=== PATIENT | female | born 1950 | race Asian ===

== ENCOUNTER 2021-05-17 16:26 | Inpatient (IN) | payer MEDICARE ==
[2021-05-17] MEDS ORDERED: SODIUM CHLORIDE 0.9% 1,000 ML IV STA ×2 (16:44→17:29)
--- NOTE | 2021-05-17 16:47 | ED Physician Documentation ---
PD HPI ALTERED MENTAL STATUS - Stated complaint Stated Complaint: HEADACHE - Chief complaint Chief Complaint: Neuro - History obtained from History obtained from: Patient, Family (daughter) - History of Present Illness Timing - onset: How many days ago (2-3 days of undulating weakness and less alertness.) Timing - duration: Days (2-3 days of weakness and less alert/ slow responses, but then was improved, now worse today.) Timing - details: Gradual onset, Waxing and waning Quality / character: Less responsive, Confused. No: Agitated Associated symptoms: Headache (intermittent), Urinary sx (some incontinence and discomfort). No: Fever, Dyspnea, Cough Contributing factors: Diabetic, New medication (mirabegron 1 month ago (April 23 fill date) - urinary antispasmodic.). No: Recent med change, Recent illness Basline status: Alert and oriented X 3, Ambulatory Similar symptoms before: Has not had sx before Recently seen: Clinic (1 month ago.) Review of Systems Unable to obtain: Confused, Other (info from her daughter, with whom patient has lived for the past few months.) Constitutional: reports: Fatigue (for few days). denies: Fever Nose: denies: Rhinorrhea / runny nose, Congestion Throat: denies: Sore throat Cardiac: denies: Chest pain / pressure Respiratory: denies: Dyspnea, Cough GI: denies: Abdominal Pain, Vomiting, Diarrhea : reports: Frequency, Incontinent Neurologic: reports: Generalized weakness, Confused, Headache. denies: Focal weakness, Numbness, Head injury Psychiatric: denies: Anxiety Endocrine: denies: Polyuria Immunocompromised: denies: Immunocompromised PD PAST MEDICAL HISTORY - Past Medical History Cardiovascular: Hypertension Respiratory: None Neuro: None Endocrine/Autoimmune: Type 2 diabetes : Incontinence, Frequency Psych: None Musculoskeletal: None - Allergies Allergies/Adverse Reactions: Allergies Allergy/AdvReac Type Severity Reaction Status Date / Time Unable to Assess Allergy Verified 05/17/21 16:40 PD ED PE NORMAL - Vitals Vital signs reviewed: Yes (BP elevated initially, lower on repeat) - General General: No: Alert and oriented X 3 (eyes open, somewhat distant glance. SLuggish responses with single word answers. ) - HEENT HEENT: Atraumatic, PERRL, EOMI, Pharynx benign. No: Moist mucous membranes - Neck Neck: Supple, no meningeal sign, No adenopathy - Cardiac Cardiac: No murmur. No: RRR (tachycardic but regular. No murmur. ) - Respiratory Respiratory: No respiratory distress, Clear bilaterally - Abdomen Abdomen: Normal bowel sounds, Soft, Non tender, Non distended - Female Female : Deferred - Rectal Rectal: Deferred - Back Back: No CVA TTP - Derm Derm: Normal color, Warm and dry - Neuro Neuro: No sensory deficit, Other (general but symmetric weakness. Normal reflexes. ). No: Alert and oriented X 3 Eye Opening: Spontaneous Motor: Obeys Commands Verbal: Confused GCS Score: 14 Results - Vitals Vitals: Vital Signs - 24 hr 05/17/21 05/17/21 05/17/21 16:35 16:42 17:13 Temperature 37.9 C Heart Rate 143 H 140 H 126 H Respiratory 18 25 H Rate Blood Pressure 201/89 H 201/89 H 141/93 H O2 Saturation 97 96 05/17/21 17:51 Temperature Heart Rate 126 H Respiratory 24 Rate Blood Pressure 148/69 H O2 Saturation 97 Oxygen O2 Source Room air - Labs Labs: Laboratory Tests 05/17/21 05/17/21 05/17/21 16:39 16:39 16:39 WBC 13.6 H RBC 4.17 L Hgb 12.7 Hct 38.0 MCV 91.1 MCH 30.5 MCHC 33.4 RDW 12.5 Plt Count 139 MPV 9.0 Neut # (Auto) 11.4 H Lymph # (Auto) 1.0 L Cataño # (Auto) 1.0 Eos # (Auto) 0.1 Baso # (Auto) 0.0 Absolute Nucleated RBC 0.00 Nucleated RBC % 0.0 Sodium 125 L Potassium 4.4 Chloride 91 L Carbon Dioxide 21 Anion Gap 13.0 BUN 22 H Creatinine 1.0 Estimated GFR (MDRD) 55 L Glucose 428 H Lactic Acid 2.2 Calcium 8.9 Magnesium 1.7 Total Bilirubin 1.4 H AST 25 ALT 30 Alkaline Phosphatase 78 Total Protein 7.6 Albumin 3.6 Globulin 4.0 Albumin/Globulin Ratio 0.9 L Lipase 182 H TSH Urine Color Urine Clarity Urine pH Ur Specific Tilden Urine Protein Urine Glucose (UA) Urine Ketones Urine Occult Blood Urine Nitrite Urine Bilirubin Urine Urobilinogen Ur Leukocyte Esterase Urine RBC Urine WBC Ur Squamous Epith Cells Urine Bacteria Ur Microscopic Review Urine Culture Comments Ethyl Alcohol < 5.0 Serum Ketones NEGATIVE 05/17/21 05/17/21 16:39 17:00 WBC RBC Hgb Hct MCV MCH MCHC RDW Plt Count MPV Neut # (Auto) Lymph # (Auto) Cataño # (Auto) Eos # (Auto) Baso # (Auto) Absolute Nucleated RBC Nucleated RBC % Sodium Potassium Chloride Carbon Dioxide Anion Gap BUN Creatinine Estimated GFR (MDRD) Glucose Lactic Acid Calcium Magnesium Total Bilirubin AST ALT Alkaline Phosphatase Total Protein Albumin Globulin Albumin/Globulin Ratio Lipase TSH 0.76 Urine Color YELLOW Urine Clarity HAZY Urine pH 5.5 Ur Specific [place] 1.015 Urine Protein 30 H Urine Glucose (UA) 500 H Urine Ketones 15 H Urine Occult Blood SMALL H Urine Nitrite POSITIVE H Urine Bilirubin NEGATIVE Urine Urobilinogen 0.2 (NORMAL) Ur Leukocyte Esterase NEGATIVE Urine RBC 6-10 H Urine WBC 11-25 H Ur Squamous Epith Cells FEW Squamous Urine Bacteria Many H Ur Microscopic Review INDICATED Urine Culture Comments INDICATED Ethyl Alcohol Serum Ketones - Rads (name of study) head CT Radiology: Prelim report reviewed (no acute findings), See rad report chest xray Radiology: Prelim report reviewed (mild vascular congestion. No infiltrates. ), See rad report PD MEDICAL DECISION MAKING - ED course Complexity details: reviewed results, re-evaluated patient (mildly improved with IV fluids, but still distant gaze and slow response. ), considered differential (2-3 days of increased weakness and confusion. ), d/w patient, other (The Agusto to use lists potential side effects of the mirabegron as tachycardia headache an d serious reaction of hallucinations. Consider potential side effects of these.) Departure - Departure Disposition: 66 [facility] DC/Xfer Clinical Impression: Hyponatremia, Tachycardia Altered mental status Qualifiers: Altered mental status type: delirium Qualified Code(s): R41.0 - Disorientation, unspecified UTI (urinary tract infection) Qualifiers: Urinary tract infection type: acute cystitis Hematuria presence: without hematuria Qualified Code(s): N30.00 - Acute cystitis without hematuria Condition: Stable Record reviewed to determine appropriate education?: Yes
[2021-05-17 16:50] LABS: BASOPHILS % (AUTO) 0.2 %; EOSINOPHILS # (AUTO) 0.1 10^3/uL (0.0-0.7); EOSINOPHILS % (AUTO) 0.7 %; HGB - HEMOGLOBIN 12.7 g/dL (12.0-16.0); LYMPHOCYTES % (AUTO) 7.4 %; MEAN CORPUSCULAR HEMOGLOBIN 30.5 pg (27.0-31.0); MEAN CORPUSCULAR HGB CONC 33.4 g/dL (32.0-36.0); MEAN CORPUSCULAR VOLUME 91.1 fL (81.0-99.0); MONOCYTES % (AUTO) 7.3 %; NEUTROPHILS # (AUTO) 11.4 10^3/uL (1.5-6.6); NEUTROPHILS % (AUTO) 83.7 %; PLT - PLATELET COUNT 139 10^3/uL (130-450); RED BLOOD COUNT 4.17 10^6/uL (4.20-5.40); RED CELL DISTRIBUTION WIDTH 12.5 % (12.0-15.0); WHITE BLOOD COUNT 13.6 x10^3/uL (4.8-10.8)
[2021-05-17 16:59] LABS: ALBUMIN 3.6 g/dL (3.2-5.5); ALBUMIN/GLOBULIN RATIO 0.9 (1.0-2.2); ALKALINE PHOSPHATASE 78 IU/L (42-121); ALT ALANINE AMINOTRANSFERASE 30 IU/L (10-60); AST ASPARTATE AMINOTRANSFERASE 25 IU/L (10-42); BILIRUBIN,TOTAL 1.4 mg/dL (0.2-1.0); BUN - BLOOD UREA NITROGEN 22 mg/dL (6-20); CALCIUM 8.9 mg/dL (8.5-10.3); CARBON DIOXIDE - CO2 21 mmol/L (21-32); CHLORIDE 91 mmol/L (101-111); ETOH - ETHANOL < 5.0 mg/dL; GFR - MDRD 55 (>89); GLUCOSE 428 mg/dL (70-100); LIPASE 182 U/L (22-51); MAGNESIUM 1.7 mg/dL (1.7-2.8); POTASSIUM 4.4 mmol/L (3.5-5.0); SODIUM 125 mmol/L (135-145); TOTAL PROTEIN 7.6 g/dL (6.7-8.2)
--- NOTE | 2021-05-17 17:03 | XRAY Report ---
PROCEDURE: Chest 1 View X-Ray INDICATIONS: altered mental status TECHNIQUE: One view of the chest was acquired. COMPARISON: None FINDINGS: Surgical changes and devices: None. Lungs and pleura: Diffuse interstitial thickening bilaterally. No dense consolidations, pleural effus ion, or pneumothorax. Mediastinum: Slight cephalization of central vessels. Normal mediastinal contour and heart size. Bones and chest wall: No suspicious bony lesions. Overlying soft tissues appear unremarkable. IMPRESSION: 1. Mild central vascular and interstitial congestion. This is likely due to volume overload/CHF. 2. Interstitial prominence can be seen in viral situs. Reviewed by: Shasha Shaffer MD on 05/17/2021 5:02 PM PST Approved by: Shasha Shaffer MD on 05/17/2021 5:02 PM PST Station ID: [id number]
--- NOTE | 2021-05-17 17:21 | CT Report ---
PROCEDURE: HEAD WO INDICATIONS: altered mental status TECHNIQUE: Noncontrast 4.5 mm thick angled axial sections acquired from the foramen magnum to the vertex. For r adiation dose reduction, the following was used: automated exposure control, adjustment of mA and/or kV according to patient size. COMPARISON: Correlation is made with the accompanying chest radiograph, 05/17/2021 FINDINGS: Image quality: There is streak artifact seen through the skull base. CSF spaces: Basal cisterns are patent. No extra-axial fluid collections. Ventricles are normal in size and shape. Brain: No midline shift. No intracranial masses or hemorrhage. Mehta-white matter interface is norm al. Skull and face: Calvarium and visualized facial bones are intact, without suspicious lesions. Sinuses: Visualized sinuses and mastoids are clear. IMPRESSION: Unremarkable noncontrast head CT for age. Reviewed by: Hieu Pollard MD on 05/17/2021 4:20 PM [facility] Approved by: Hieu Pollard MD on 05/17/2021 4:20 PM [facility] Station ID: [id number]
[2021-05-17 17:25] LABS: BILIRUBIN,URINE NEGATIVE (NEGATIVE); GLUCOSE, URINE (UA) 500 mg/dL (NEGATIVE); KETONES,URINE (UA) 15 mg/dL (NEGATIVE); LEUKOCYTE ESTERASE, URINE NEGATIVE (NEGATIVE); NITRITE,URINE POSITIVE (NEGATIVE); OCCULT BLOOD,URINE SMALL (NEGATIVE); PH,URINE 5.5 PH (5.0-7.5); PROTEIN,URINE 30 mg/dL (NEGATIVE); UROBILINOGEN,URINE 0.2 (NORMAL) E.U./dL (NORMAL)
[2021-05-17 17:25] LABS: KETONES, SERUM (ACETEST) NEGATIVE (NEGATIVE)
[2021-05-17 17:26] LABS: CLARITY,URINE HAZY (CLEAR)
[2021-05-17] MEDS ORDERED: diltiaZEM INJ 5 MG/ML VIAL IVP STA (17:28)
[2021-05-17] MEDS ORDERED: cefTRIAXone 1 GM VIAL IVP STA (17:29)
[2021-05-17 17:30] LABS: BACTERIA,URINE Many /HPF (None Seen); SQUAMOUS EPITHELIAL CELL,UR FEW Squamous (<= Few)
[2021-05-17] MEDS ORDERED: SODIUM CHLORIDE FLUSH 0.9% 10 ML SYRINGE IVP PRN (18:39)
[2021-05-17] MEDS ORDERED: ONDANSETRON 4 MG/2 ML VIAL IVP PRN (18:39)
[2021-05-17 18:46] LABS: B. PARAPERTUSSIS- RESP PCR PAN NOT DETECTED; B. PERTUSSIS- RESP PCR PANEL NOT DETECTED; C. PNEUMONIAE- RESP PCR PANEL NOT DETECTED; CORONAVIRUS 229E-RESP PCR NOT DETECTED; CORONAVIRUS HKU1-RESP PCR NOT DETECTED; CORONAVIRUS NL63-RESP PCR NOT DETECTED; CORONAVIRUS OC43-RESP PCR NOT DETECTED; HUMAN METAPNEUMOVIRUS NOT DETECTED; INFLUENZA A- RESP PCR PANEL NOT DETECTED; INFLUENZA B - RESP PCR PANEL NOT DETECTED; M. PNEUMONIAE- RESP PCR PANEL NOT DETECTED; PARAINFLUENZA VIRUS 1 NOT DETECTED; PARAINFLUENZA VIRUS 2 NOT DETECTED; PARAINFLUENZA VIRUS 3 NOT DETECTED; PARAINFLUENZA VIRUS 4 NOT DETECTED; RHINOVIRUS/ENTEROVIRUS NOT DETECTED; RSV- RESP PCR PANEL NOT DETECTED; SARS-CoV-2 -RESP PCR PANEL NOT DETECTED
[2021-05-17] MEDS: SODIUM CHLORIDE 0.9% 1,000 ML IV SCH ×2 (19:14→20:57)
[2021-05-17] MEDS ORDERED: LABETALOL 20 MG/4 ML SYRINGE IVP PRN (19:55)
--- NOTE | 2021-05-17 20:00 | HISTORY & PHYSICAL EXAMINATION ---
Chief Complaint - Chief Complaint Chief Complaint: chills, headache, urinary incontinence, lethargy, tachycardia History of Present Illness - Admitted From Admitted From:: [facility] ED - History Obtained From Records Reviewed: yes History obtained from: patient and daughter - History of Present Illness HPI Comment/Other: Patient is a 70-year-old female who presented to the ED with complaint of chills, headache, urinary frequency and urinary incontinence. Symptoms started 2 days ago. She has been mostly sleeping/lethargic for the past 2 days. Today her blood glucose was 414 at home as a result her daughter decided to bring her to the emergency room for evaluation. In the ED she was noted to be tachycardic with heart rate as high as the 140s. She received a dose of diltiazem 15 mg IV x1 which resulted in improved heart rate down to 109 Work-up included a urine analysis which was indicative of a UTI. Urine nitrite was positive, urine WBC 11-25 with many bacteria. CBC showed white blood cell count of 13. She also had a sodium level of 125 with blood glucose of 428. Her Metformin dose had been increased to 1000 twice daily however she only takes 500 mg twice daily due to stomach upset. She was started on Myrbetriq about 2 months ago. Denied chest pain, dyspnea, abdominal pain, nausea, vomiting. As a result she was presented for admission for further management. She is currently visiting her daughter from [place]. She has been on [facility] for the past month. Her medical history is significant for diabetes mellitus, overactive bladder, hypertension and hyperlipidemia. 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 Patient's mother was diabetic. She has a brother who had an MN and another brother who had end-stage renal disease on hemodialysis. Living arrangement: At home Social History Notes: She is currently visiting her daughter in [facility] from [place]. She does not consume alcohol, tobacco products or recreational substances. - POLST Patient has POLST: No POLST Status: Full Code Meds/Allgy - Allergies Allergies/Adverse Reactions: Allergies Allergy/AdvReac Type Severity Reaction Status Date / Time Unable to Assess Allergy Verified 05/17/21 16:40 Review of Systems - Constitutional Constitutional: reports: Fatigue, Chills, Weakness - Eyes Eyes: denies: Pain, Vision loss, Dipolpia - Ears, Nose & Throat Ears, Nose & Throat: denies: Ear pain - Cardiovascular Cariovascular: reports: Palpitations. denies: Irregular heart rate, Chest pain, Edema, Lightheadedness, Exertional dyspnea - Respiratory Respiratory: denies: Cough, Sputum production, Wheezing, SOB at rest, SOB with exertion - Gastrointestinal Gastrointestinal: reports: Nausea. denies: Abdominal pain, Abdominal distention, Vomiting, Coffee grounds emesis, Reflux/heartburn - Genitourinary Genitourinary: reports: Frequency, Urgency, Incontinence. denies: Hematuria - Musculoskeletal Musculoskeletal: denies: Muscle pain, Back pain, Muscle aches - Integumentary Integumentary: denies: Rash, Pruritis, Lesions - Neurological Neurological: reports: Headache. denies: General weakness, Focal weakness, Dizziness - Psychiatric Psychiatric: denies: Depression, Anxiety - Endocrine Endocrine: denies: Polyuria, Polydypsia - Hematologic/Lymphatic Hematologic/Lymphatic: denies: Anemia, Bruising Prior Level of Functionality: Patient is independent of activities of daily living. Exam - Vital Signs Vital Signs: Vital Signs x48h Temp Pulse Resp BP Pulse Ox 05/17/21 19:37 108 H 22 161/74 H 97 05/17/21 19:30 109 H 21 121/74 96 05/17/21 19:11 108 H 24 150/60 H 97 05/17/21 18:34 112 H 25 H 143/62 H 94 05/17/21 17:51 126 H 24 148/69 H 97 05/17/21 17:13 126 H 25 H 141/93 H 96 05/17/21 16:42 140 H 201/89 H 05/17/21 16:35 37.9 C 143 H 18 201/89 H 97 - Physical Exam General Appearance: positive: No acute distress, Alert Eyes Bilateral: positive: PERRL, EOMI ENT: positive: Dry mucous membranes Neck: positive: No JVD, Trachea midline Respiratory: positive: Chest non-tender, No respiratory distress, Breath sounds nml. negative: Wheezes, Rales, Rhonchi Cardiovascular: positive: Tachycardia Abdomen: positive: Non-tender, No organomegaly, Nml bowel sounds, No distention. negative: Guarding, Rebound Back: positive: Nml inspection Skin: positive: Color nml, No rash, Warm, Dry Extremities: positive: Non-tender, Full ROM, Nml appearance, No pedal edema Neurologic/Psychiatric: positive: Oriented x3, Mood/affect nml Conclusion/Plan - Problem List (1) UTI (urinary tract infection) Conclusion/Plan: Urine and blood cultures were drawn in the ED. Patient was started on Rocephin. We will continue Rocephin 1 g IV daily. IV hydration with normal saline at 100 mL/h. Tylenol 650 mg p.o. every 4 hours as needed for pain and/or fever Qualifiers: Urinary tract infection type: acute cystitis Hematuria presence: without hematuria Qualified Code(s): N30.00 - Acute cystitis without hematuria (2) Tachycardia Conclusion/Plan: Sinus tachycardia. Heart rate as high as 140s. This is likely secondary to UTI. Patient was given a dose of diltiazem in the ED and heart rate improved to 109. We will continue to monitor. (3) Hyponatremia Conclusion/Plan: Suspect pseudohyponatremia. Patient's blood glucose level was 428. Receiving IV hydration with normal saline at 100 mL/h. Patient received a 1 L bolus of normal saline in the ED. Anticipating improvement with improvement in blood glucose level (4) Altered mental status Conclusion/Plan: Likely secondary to UTI. Patient's mentation improved in the ED with IV hydration and administration of antibiotic. CT brain was negative for any acute intracranial process. Qualifiers: Altered mental status type: delirium Qualified Code(s): R41.0 - Disorientation, unspecified (5) Diabetes mellitus Conclusion/Plan: Suspect poorly controlled. Patient's blood glucose today was 428. Patient is supposed to be on Metformin 1000 mg p.o. twice daily. However she only takes 500 mg p.o. twice daily due to stomach upset at higher doses. She also takes glipizide 2.5 mg p.o. daily. Oral diabetic medications held. Sliding scale insulin ordered with Accu-Cheks before every meal and at bedtime. We will check hemoglobin A1c with morning labs. Qualifiers: Diabetes mellitus type: type 2 (6) Hypertension Conclusion/Plan: On losartan daily. Labetalol 10 mg every 4 hours as needed ordered for systolic blood pressure greater than 160. (7) Hyperlipidemia Conclusion/Plan: Patient takes simvastatin at home. - Lab Results Fish Bones: 05/17/21 16:39 05/17/21 16:39 Core Measures - Anticipated LOS I expect patient to be DC'd or transferred within 96 hours.: Yes - DVT/VTE - Prophylaxis VTE/DVT Device ordered at admit?: Yes
[2021-05-17] MEDS: INSULIN ASPART 300 UNIT/3 ML PEN SUBQ SCH (21:05)
[2021-05-18] MEDS: SODIUM CHLORIDE FLUSH 0.9% 10 ML SYRINGE IVP SCH ×3 (01:03→18:47)
[2021-05-18] MEDS: ACETAMINOPHEN 325 MG TABLET PO PRN ×3 (04:43→23:27)
[2021-05-18 05:16] LABS: BASOPHILS % (AUTO) 0.2 %; EOSINOPHILS % (AUTO) 0.9 %; HGB - HEMOGLOBIN 11.1 g/dL (12.0-16.0); LYMPHOCYTES % (AUTO) 9.3 %; MEAN CORPUSCULAR HEMOGLOBIN 30.7 pg (27.0-31.0); MEAN CORPUSCULAR HGB CONC 33.6 g/dL (32.0-36.0); MEAN CORPUSCULAR VOLUME 91.2 fL (81.0-99.0); MEAN PLATELET VOLUME 9.3 fL (7.9-10.8); MONOCYTES % (AUTO) 11.6 %; NEUTROPHILS % (AUTO) 77.5 %; PLT - PLATELET COUNT 118 10^3/uL (130-450); RED BLOOD COUNT 3.62 10^6/uL (4.20-5.40); RED CELL DISTRIBUTION WIDTH 12.4 % (12.0-15.0); WHITE BLOOD COUNT 13.3 x10^3/uL (4.8-10.8)
[2021-05-18 05:24] LABS: CALCIUM 8.1 mg/dL (8.5-10.3); CREATININE 0.8 mg/dL (0.4-1.0); POTASSIUM 3.6 mmol/L (3.5-5.0)
[2021-05-18 05:30] LABS: ABNORMAL LYMPHS % (MANUAL) 0 %
[2021-05-18 05:54] LABS: BAND NEUTROPHILS % (MANUAL) 6 %; DIFFERENTIAL COMMENT MANUAL DIFFERENTIAL; LYMPHOCYTES # (MANUAL) 1.9 10^3/uL (1.5-3.5); LYMPHOCYTES % (MANUAL) 14 %; MONOCYTES # (MANUAL) 0.9 10^3/uL (0.0-1.0); NEUTROPHILS # (MANUAL) 10.5 10^3/uL (1.5-6.6); PLATELET ESTIMATE, MANUAL DECREASED (<130,000) (NORMAL); RBC MORPHOLOGY (MULTIPLE) NORMAL APPEARANCE (NORMAL)
[2021-05-18] MEDS: SODIUM CHLORIDE 0.9% 1,000 ML IV SCH ×2 (06:18→18:47)
--- NOTE | 2021-05-18 07:32 | PROVIDER PROGRESS NOTE ---
Assessment/Plan - Problem List (1) E coli bacteremia Assessment/Plan: 2 out of 2 blood cultures have turned positive for E. coli. Her lactic acid level was on the fence abnormal at 2.2 at admission. Patient was started on Rocephin iv in ED. WBC has not changed, still elevated at 13. She also spiked at fever at 0430 this morning. Will draw another bld cx to assure it has no growth. We will continue with Rocephin, but increase to 2 g IV daily due to bacteremia, not just UTI. Continue IV hydration with normal saline at 100 mL/h. Tylenol 650 mg p.o. every 4 hours as needed for pain and/or fever (2) UTI (urinary tract infection) Qualifiers: Urinary tract infection type: acute cystitis Hematuria presence: without hematuria Qualified Code(s): N30.00 - Acute cystitis without hematuria Assessment/Plan: Urine and blood cultures were drawn in the ED. Patient was started on Rocephin. WBC has not changed, still elevated at 13 We will continue Rocephin IV daily. Continue IV hydration with normal saline at 100 mL/h. Tylenol 650 mg p.o. every 4 hours as needed for pain and/or fever Will consider imaging if not done in ED Qualifiers: Urinary tract infection type: acute cystitis Hematuria presence: without hematuria Qualified Code(s): N30.00 - Acute cystitis without hematuria (3) Tachycardia Conclusion/Plan: Sinus tachycardia. Heart rate was as high as 140s. This is likely secondary to UTI and dehydration (had poor po intake while lethargic for 2 days). Patient was given a dose of diltiazem in the ED and started on iv hydration and heart rate improved to 109 and is 103 this a.m.. We will continue to monitor on telem (4) Hyponatremia Conclusion/Plan: Suspect pseudohyponatremia vs hypovolemic hyponatremia. Patient's blood glucose level was 428. Patient received a 1 L bolus of normal saline in the ED. Receiving IV hydration with normal saline at 100 mL/h. Anticipating improvement with improvement in blood glucose level Follow BMP daily (5) Altered mental status Conclusion/Plan: Likely secondary to bacteremia and UTI. Patient's mentation improved in the ED with IV hydration and administration of antibiotic. CT brain was negative for any acute intracranial process. Qualifiers: Altered mental status type: delirium Qualified Code(s): R41.0 - Disorientation, unspecified (6) Diabetes mellitus Conclusion/Plan: Suspect poorly controlled. Patient's blood glucose today was 428. Patient is supposed to be on Metformin 1000 mg p.o. twice daily. However she only takes 500 mg p.o. twice daily due to stomach upset at higher doses. She also takes glipizide 2.5 mg p.o. daily. The patient also reported that she was not on any special diet, was eating sugar ad axel. Oral diabetic medications held. Her hemoglobin A1c with morning labs was Sliding scale insulin ordered with Accu-Cheks before every meal and at bedtime. Will request a nutrition consult Qualifiers: Diabetes mellitus type: type 2 (7) Urinary incontinence The daughter asked if the pt's urinary "leaking" is a cause of this UTI and also reported there was a recent UTI in Jan in [place] and wonders if it was fully treated. Currently after the January UTI, she was started on this new bladder spasm medication, Myrbetriq, which helped slightly but then the patient stopped taking it 2 weeks ago because of a co-pay of $100 a month. Will request an OBGYN consult regarding these questions and recommendations regarding the best med for urinary incontinence. (8) Hypertension Conclusion/Plan: On losartan daily. She presented to ER with BP 200 systolic Labetalol 10 mg every 4 hours prn ordered for systolic blood pressure greater than 160. (9) Hyperlipidemia Conclusion/Plan: Patient takes simvastatin at home. - Current Meds Current Meds: Current Medications Generic Name Dose Route Start Last Admin Trade Name Freq PRN Reason Stop Dose Admin Acetaminophen 650 mg 05/17/21 18:39 05/18/21 04:43 Acetaminophen 325 Mg Tablet PO 650 mg Q4HR PRN Administration Pain or Fever > 38C (100.4F) Sodium Chloride 1,000 mls @ 100 mls/hr 05/17/21 19:00 05/18/21 06:18 Normal Saline 0.9% IV 100 mls/hr .Q10H SHARON Administration Insulin Aspart 1 - 5 unit 05/17/21 21:00 05/17/21 21:05 Insulin Aspart 300 Unit/3 Ml Pen SUBQ 5 unit 0800,1200,1700,2100 SHARON Administration Protocol Sodium Chloride 10 ml 05/18/21 01:00 05/18/21 01:03 Sodium Chloride Flush 0.9% 10 Ml Syringe IVP Not Given 0100,0900,1700 SHARON - Lab Result Fish Bone Diagrams: 05/18/21 04:37 05/18/21 04:37 - Additional Planning My Orders: My Active Orders 05/17/21 18:39 Activity Orders [RC] Q2HR IO [RC] IOSHIFT Initiate Bowel Care Protocol [RC] .protocol Initiate Line Care Protocol [RC] QSHIFT Initiate Personal Care Protoco [RC] .protocol Oxygen Therapy [RC] .PRN Telemetry- [RC] Q4HR Vital Signs [RC] Q4HR Acetaminophen [Tylenol] 650 mg PO Q4HR PRN Ondansetron Inj [Zofran Inj] 4 mg IVP Q6HR PRN Sodium Chloride Flush 0.9% [Normal Saline Flush 0.9%] 10 ml IVP PRN PRN Code Status [OTHERS] Routine Condition of Patient [OTHERS] Routine DVT Prophylaxis [OTHERS] Routine 05/17/21 18:41 Daily Weight [RC] 0600 05/17/21 18:42 SCDs [RC] QSHIFT Social Work Consult [CONS] Routine 05/17/21 18:45 Blood Glucose Checks - Eating [RC] 0800,1200,1700,2100 Initiate Hypoglycemia Protocol [RC] .protocol 05/17/21 19:00 Sodium Chloride 0.9% [Normal Saline 0.9%] 1,000 ml IV 100 mls/hr 05/17/21 21:00 Insulin Aspart [NovoLOG] 1 - 5 unit SUBQ 0800,1200,1700,2100 05/18/21 01:00 Sodium Chloride Flush 0.9% [Normal Saline Flush 0.9%] 10 ml IVP 0100,0900,1700 05/18/21 Breakfast Carb-controlled Diet [DIET] 05/18/21 04:37 HEMOGLOBIN A1c% [CHEM] DAILYLAB Subjective - Subjective Patient Reports: Feeling Better, No Complaints (The patient cannot remember how she got here, stated she is foggy regarding the past several days to 1 week. The patient admitted that she follows no special diet, eats sugar ad axel, despite being a Diabetic.) Objective Vital Signs: Vital Signs - 24 hr 05/17/21 05/17/21 05/17/21 16:35 16:42 17:13 Temperature 37.9 C Heart Rate 143 H 140 H 126 H Heart Rate [ Brachial] Respiratory 18 25 H Rate Blood Pressure 201/89 H 201/89 H 141/93 H Blood Pressure [Right Brachial artery] O2 Saturation 97 96 05/17/21 05/17/21 05/17/21 17:51 18:34 19:11 Temperature Heart Rate 126 H 112 H 108 H Heart Rate [ Brachial] Respiratory 24 25 H 24 Rate Blood Pressure 148/69 H 143/62 H 150/60 H Blood Pressure [Right Brachial artery] O2 Saturation 97 94 97 05/17/21 05/17/21 05/17/21 19:30 19:37 20:22 Temperature 37.1 C Heart Rate 109 H 108 H Heart Rate [ 109 H Brachial] Respiratory 21 22 Rate Blood Pressure 121/74 161/74 H Blood Pressure 170/87 H [Right Brachial artery] O2 Saturation 96 97 05/17/21 05/17/21 05/18/21 21:08 23:35 04:43 Temperature 36.8 C 38.3 C H Heart Rate Heart Rate [ 107 H 110 H 103 H Brachial] Respiratory 18 18 Rate Blood Pressure Blood Pressure 145/65 H 136/58 H 145/59 H [Right Brachial artery] O2 Saturation 97 94 Oxygen O2 Source Room air I&O (Last 24 Hrs): Intake and Output Totals x24h 05/16/21 05/17/21 05/18/21 23:59 23:59 23:59 Intake Total 2096.667 1285 Output Total 150 500 Balance 1946.667 785 General: Alert, Oriented x3 HEENT: Mucous membr. moist/pink Neck: Supple, No JVD Neuro: Alert, Non Focal, Other (Slow to answer, then speaks normally but in short sentences) Cardiovascular: Regular rate, No murmurs Respiratory: No respiratory distress, Breath sounds nml Abdomen: Soft Extremities: No clubbing, No edema, No tenderness/swelling - Results Results: Laboratory Results WBC 13.3 x10^3/uL (4.8-10.8) H 05/18/21 04:37 RBC 3.62 10^6/uL (4.20-5.40) L 05/18/21 04:37 Hgb 11.1 g/dL (12.0-16.0) L 05/18/21 04:37 Hct 33.0 % (37.0-47.0) L 05/18/21 04:37 MCV 91.2 fL (81.0-99.0) 05/18/21 04:37 MCH 30.7 pg (27.0-31.0) 05/18/21 04:37 MCHC 33.6 g/dL (32.0-36.0) 05/18/21 04:37 RDW 12.4 % (12.0-15.0) 05/18/21 04:37 Plt Count 118 10^3/uL (130-450) L 05/18/21 04:37 MPV 9.3 fL (7.9-10.8) 05/18/21 04:37 Neut # (Auto) Not Reportable 05/18/21 04:37 Lymph # (Auto) Not Reportable 05/18/21 04:37 Randall # (Auto) Not Reportable 05/18/21 04:37 Eos # (Auto) Not Reportable 05/18/21 04:37 Baso # (Auto) Not Reportable 05/18/21 04:37 Absolute Nucleated RBC Not Reportable 05/18/21 04:37 Total Counted 100 05/18/21 04:37 Band Neuts % (Manual) 6 % (0-10) 05/18/21 04:37 Abnorm Lymph % (Manual) 0 % 05/18/21 04:37 Nucleated RBC % Not Reportable 05/18/21 04:37 Neutrophils # (Manual) 10.5 10^3/uL (1.5-6.6) H 05/18/21 04:37 Lymphocytes # (Manual) 1.9 10^3/uL (1.5-3.5) 05/18/21 04:37 Monocytes # (Manual) 0.9 10^3/uL (0.0-1.0) 05/18/21 04:37 Eosinophils # (Manual) 0.0 10^3/uL (0-0.7) 05/18/21 04:37 Basophils # (Manual) 0.0 10^3/uL (0-0.1) 05/18/21 04:37 Differential Comment MANUAL DIFFERENTIAL 05/18/21 04:37 Platelet Estimate DECREASED (<130,000) (NORMAL) 05/18/21 04:37 RBC Morph Micro Appear NORMAL APPEARANCE (NORMAL) 05/18/21 04:37 Sodium 130 mmol/L (135-145) L 05/18/21 04:37 Potassium 3.6 mmol/L (3.5-5.0) 05/18/21 04:37 Chloride 97 mmol/L (101-111) L 05/18/21 04:37 Carbon Dioxide 22 mmol/L (21-32) 05/18/21 04:37 Anion Gap 11.0 (6-13) 05/18/21 04:37 BUN 17 mg/dL (6-20) 05/18/21 04:37 Creatinine 0.8 mg/dL (0.4-1.0) 05/18/21 04:37 Estimated GFR (MDRD) 71 (>89) L 05/18/21 04:37 Glucose 253 mg/dL (70-100) H 05/18/21 04:37 POC Whole Bld Glucose 326 mg/dL (70 - 100) H 05/17/21 20:37 Lactic Acid 2.2 mmol/L (0.5-2.2) 05/17/21 16:39 Calcium 8.1 mg/dL (8.5-10.3) L 05/18/21 04:37 Magnesium 1.7 mg/dL (1.7-2.8) 05/17/21 16:39 Total Bilirubin 1.4 mg/dL (0.2-1.0) H 05/17/21 16:39 AST 25 IU/L (10-42) 05/17/21 16:39 ALT 30 IU/L (10-60) 05/17/21 16:39 Alkaline Phosphatase 78 IU/L (42-121) 05/17/21 16:39 Total Protein 7.6 g/dL (6.7-8.2) 05/17/21 16:39 Albumin 3.6 g/dL (3.2-5.5) 05/17/21 16:39 Globulin 4.0 g/dL (2.1-4.2) 05/17/21 16:39 Albumin/Globulin Ratio 0.9 (1.0-2.2) L 05/17/21 16:39 Lipase 182 U/L (22-51) H 05/17/21 16:39 TSH 0.76 uIU/mL (0.34-5.60) 05/17/21 16:39 Urine Color YELLOW 05/17/21 17:00 Urine Clarity HAZY (CLEAR) 05/17/21 17:00 Urine pH 5.5 PH (5.0-7.5) 05/17/21 17:00 Ur Specific [place] 1.015 (1.002-1.030) 05/17/21 17:00 Urine Protein 30 mg/dL (NEGATIVE) H 05/17/21 17:00 Urine Glucose (UA) 500 mg/dL (NEGATIVE) H 05/17/21 17:00 Urine Ketones 15 mg/dL (NEGATIVE) H 05/17/21 17:00 Urine Occult Blood SMALL (NEGATIVE) H 05/17/21 17:00 Urine Nitrite POSITIVE (NEGATIVE) H 05/17/21 17:00 Urine Bilirubin NEGATIVE (NEGATIVE) 05/17/21 17:00 Urine Urobilinogen 0.2 (NORMAL) E.U./dL (NORMAL) 05/17/21 17:00 Ur Leukocyte Esterase NEGATIVE (NEGATIVE) 05/17/21 17:00 Urine RBC 6-10 /HPF (0-5) H 05/17/21 17:00 Urine WBC 11-25 /HPF (0-5) H 05/17/21 17:00 Ur Squamous Epith Cells FEW Squamous (<= Few) 05/17/21 17:00 Urine Bacteria Many /HPF (None Seen) H 05/17/21 17:00 Ur Microscopic Review INDICATED 05/17/21 17:00 Urine Culture Comments INDICATED 05/17/21 17:00 Nasal Adenovirus (PCR) NOT DETECTED 05/17/21 17:40 Nasal B. parapertussis DNA (PCR) NOT DETECTED 05/17/21 17:40 Nasal Coronavir 229E PCR NOT DETECTED 05/17/21 17:40 Nasal Coronavir HKU1 PCR NOT DETECTED 05/17/21 17:40 Nasal Coronavir NL63 PCR NOT DETECTED 05/17/21 17:40 Nasal Coronavir OC43 PCR NOT DETECTED 05/17/21 17:40 Nasal Enterovir/Rhinovir PCR NOT DETECTED 05/17/21 17:40 Nasal Influenza B PCR NOT DETECTED 05/17/21 17:40 Nasal Influenza A PCR NOT DETECTED 05/17/21 17:40 Nasal Parainfluen 1 PCR NOT DETECTED 05/17/21 17:40 Nasal Parainfluen 2 PCR NOT DETECTED 05/17/21 17:40 Nasal Parainfluen 3 PCR NOT DETECTED 05/17/21 17:40 Nasal Parainfluen 4 PCR NOT DETECTED 05/17/21 17:40 Nasal RSV (PCR) NOT DETECTED 05/17/21 17:40 Nasal B.pertussis DNA PCR NOT DETECTED 05/17/21 17:40 Nasal C.pneumoniae (PCR) NOT DETECTED 05/17/21 17:40 Rhett Human Metapneumo PCR NOT DETECTED 05/17/21 17:40 Nasal M.pneumoniae (PCR) NOT DETECTED 05/17/21 17:40 Nasal SARS-CoV-2 (PCR) NOT DETECTED 05/17/21 17:40 Ethyl Alcohol < 5.0 mg/dL 05/17/21 16:39 Serum Ketones NEGATIVE (NEGATIVE) 05/17/21 16:39 ABX Reporting Has patient been on IV antibiotics over the past 48 hours?: Yes
[2021-05-18] MEDS: INSULIN ASPART 300 UNIT/3 ML PEN SUBQ SCH ×4 (07:50→21:30)
[2021-05-18] MEDS ORDERED: cefTRIAXone 1 GM in SODIUM CHLORIDE 0.9% MINIBAG 100 ML IV SCH (09:00)
[2021-05-18 10:54] LABS: ESTIMATED AVERAGE GLUCOSE 255 mg/dL (70-100); HEMOGLOBIN A1c% 10.5 % (4.27-6.07)
[2021-05-18] MEDS ORDERED: cefTRIAXone 1 GM in SODIUM CHLORIDE 0.9% MINIBAG 100 ML IV ONE (11:00)
--- NOTE | 2021-05-18 11:17 | PHARMACY PROGRESS NOTE ---
- Best Possible Medication History Admit Date and Time: 05/17/21 1839 Processed by: Pharmacy Medication History completed: Yes Patient Interview: Completed Secondary Source(s): Written medication list, Other family member, Insurance records As the person ultimately responsible for medication therapy, providers are able to order a medication from an existing home medication list in [facility] via the "Reconcile Routine" prior to Confirmation of that medication by call center support consultant. Such practice is discouraged except when the physician, in their clinical judgment, deems that a medical need exists for a medication without regard to previous use.
--- NOTE | 2021-05-18 14:48 | CT Report ---
PROCEDURE: Abdomen/Pelvis WO INDICATIONS: UTI and bacteremia TECHNIQUE: Noncontrast 5 mm thick sections acquired from the diaphragms to the symphysis. 5 mm coronal and sagi ttal reformats were then performed. For radiation dose reduction, the following was used: automated exposure control, adjustment of mA and/or kV according to patient size. COMPARISON: None. FINDINGS: Inferior chest: No focal consolidation, pleural effusion, or pneumothorax. No cardiomegaly or perica rdial effusion. Gallbladder: The gallbladder is distended with a smooth wall. Biliary tree: No intra-or extrahepatic biliary ductal dilatation. Liver: The liver demonstrates normal appearance. Spleen: Normal size and morphology is seen. Pancreas: Normal morphology without masses or inflammatory changes. Adrenals: Normal size without masses. Kidneys: Bilateral perinephric stranding with mild to moderate hydronephrosis and hydroureter. No nep hrolithiasis. Vasculature: No evidence of aneurysm or other significant vascular pathology. Lymphatic system: No pathologic enlargement by size criteria. Bowel: No intestinal obstruction. Normal appendix. Peritoneum/Retroperitoneum: No free intraperitoneal gas or large collection. Urinary bladder: Distention of the urinary bladder. Pelvic organs: No significant abnormality. Bones/soft tissues: No significant osseous abnormality. Multifocal degenerative change of the osseous structures. 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 Mild anasarca. IMPRESSION: 1.Bilateral perinephric stranding and hydronephrosis with distention of the urinary bladder. 2.Expansion of the sacral foramen, which may reflect Tarlov cyst formation. Consider magnetic resonan ce imaging of the lumbar spine for further evaluation as warranted. Reviewed by: Carlos Enrique Rivera MD on 05/18/2021 2:47 PM PST Approved by: Carlos Enrique Rivera MD on 05/18/2021 2:47 PM PST Station ID: [id number]
[2021-05-19] MEDS: SODIUM CHLORIDE 0.9% 1,000 ML IV SCH ×2 (03:54→18:40)
[2021-05-19] MEDS: SODIUM CHLORIDE FLUSH 0.9% 10 ML SYRINGE IVP SCH ×3 (03:57→17:01)
[2021-05-19 05:11] LABS: BASOPHILS % (AUTO) 0.2 %; EOSINOPHILS % (AUTO) 0.2 %; HCT - HEMATOCRIT 40.5 % (37.0-47.0); HGB - HEMOGLOBIN 13.5 g/dL (12.0-16.0); LYMPHOCYTES # (AUTO) 1.1 10^3/uL (1.5-3.5); LYMPHOCYTES % (AUTO) 7.8 %; MEAN CORPUSCULAR HEMOGLOBIN 30.6 pg (27.0-31.0); MEAN CORPUSCULAR HGB CONC 33.3 g/dL (32.0-36.0); MEAN CORPUSCULAR VOLUME 91.8 fL (81.0-99.0); MEAN PLATELET VOLUME 9.2 fL (7.9-10.8); MONOCYTES # (AUTO) 1.3 10^3/uL (0.0-1.0); MONOCYTES % (AUTO) 9.2 %; NEUTROPHILS # (AUTO) 11.8 10^3/uL (1.5-6.6); PLT - PLATELET COUNT 136 10^3/uL (130-450); RED BLOOD COUNT 4.41 10^6/uL (4.20-5.40); RED CELL DISTRIBUTION WIDTH 12.3 % (12.0-15.0); WHITE BLOOD COUNT 14.4 x10^3/uL (4.8-10.8)
[2021-05-19 05:17] LABS: CALCIUM 8.3 mg/dL (8.5-10.3); CREATININE 0.8 mg/dL (0.4-1.0); POTASSIUM 3.5 mmol/L (3.5-5.0)
[2021-05-19] MEDS: INSULIN ASPART 300 UNIT/3 ML PEN SUBQ SCH ×4 (08:11→20:42)
[2021-05-19] MEDS: cefTRIAXone 2 GM in SODIUM CHLORIDE 0.9% MINIBAG 100 ML IV SCH (08:48)
--- NOTE | 2021-05-19 12:12 | PROVIDER PROGRESS NOTE ---
Assessment/Plan - Problem List (1) E coli bacteremia Assessment/Plan: 2 out of 2 blood cultures have turned positive for E. coli. Her lactic acid level was on the fence abnormal at 2.2 at admission. Patient was started on Rocephin iv in ED. WBC has not improved, 113>>13>> 14 today. She also again spiked at fever this morning. Will draw another bld cx to assure it has no growth. We will continue with Rocephin at 2 g IV daily due to bacteremia, not just UTI. Continue IV hydration with normal saline at 100 mL/h. Tylenol 650 mg p.o. every 4 hours as needed for pain and/or fever (2) Pyelonephritis due to Escherichia coli Assessment/Plan: CT of abdomen and pelvis done yesterday and showed bilateral kidney stranding consistent with pyelonephritis. E coli with same sens growing in blood and urine. WBC has not improved We will continue Rocephin IV daily. Continue IV hydration with normal saline at 100 mL/h. Tylenol 650 mg p.o. every 4 hours as needed for pain and/or fever (3) Urinary retention The CT scan done yesterday showed a distended urinary bladder. Today the patient has lower abdominal pain and bladder scan showed 1035 cc of retained urine. The daughter asked if the pt's urinary "leaking" is a cause of this UTI and also reported there was a recent UTI in Jan in [place] and wonders if it was fully treated. Currently after the January UTI, she was started on this new bladder spasm medication, Myrbetriq, which helped slightly but then the patient stopped taking it 2 weeks ago because of a co-pay of $100 a month. Will insert a Jacob to manage bladder distention. Concern that pt has diabetic neuropathy causing this Will request an OBGYN consult regarding these concerns and for recommendations regarding the best med for urinary bladder distension and probable overflow incontinence. All the above was explained to the pt and daughter at her bedside. (4) Diabetes mellitus Conclusion/Plan: She has very poorly controlled DM. Her hemoglobin A1c with morning labs was 10.5 She reported that her last 3 A1c's in [place] were 7>> 8>> 10. Patient's blood glucose was 400's at admission. Patient is supposed to be on Metformin 1000 mg p.o. twice daily. However she only takes 500 mg p.o. twice daily due to stomach upset at higher doses. She also takes glipizide 2.5 mg p.o. daily. The patient also reported that she was not on any special diet, was eating sugar ad axel. She also did not do figerstick monitoring. Oral diabetic medications are on hold here Sliding scale insulin ordered with Accu-Cheks before every meal and at bedtime. Glu now are in the 200's. Will add Lantus 5U sq qpm We requested a nutrition consult for Diabetic teaching with pt and the daughter present. Qualifiers: Diabetes mellitus type: type 2 (5) Hyponatremia Conclusion/Plan: Na is 128 today. Suspect pseudohyponatremia vs hypovolemic hyponatremia. Patient's blood glucose level was 428. Patient received a 1 L bolus of normal saline in the ED. Receiving IV hydration with normal saline at 100 mL/h. Anticipating improvement with improvement in blood glucose level Follow BMP daily (6) Hypertension Conclusion/Plan: On losartan daily. She presented to ER with BP 200 systolic Labetalol 10 mg every 4 hours prn ordered for systolic blood pressure greater than 160. (7) Hyperlipidemia Conclusion/Plan: Patient takes simvastatin at home. (8) Tachycardia Conclusion/Plan: Sinus tachycardia. Heart rate was as high as 140s at admission HR has improved intermittentlt to <100, but rises with her fever. We will continue to monitor (9) Altered mental status Conclusion/Plan: Resolved. Likely secondary to bacteremia and UTI. Patient's mentation improved in the ED with IV hydration and administration of antibiotic. CT brain was negative for any acute intracranial process. Will order PT eval to ambulate and prevent deconditioning Qualifiers: Altered mental status type: delirium Qualified Code(s): R41.0 - Disorientation, unspecified - Current Meds Current Meds: Current Medications Generic Name Dose Route Start Last Admin Trade Name Freq PRN Reason Stop Dose Admin Acetaminophen 650 mg 05/17/21 18:39 05/18/21 23:27 Acetaminophen 325 Mg Tablet PO 650 mg Q4HR PRN Administration Pain or Fever > 38C (100.4F) Sodium Chloride 1,000 mls @ 100 mls/hr 05/17/21 19:00 05/19/21 10:13 Normal Saline 0.9% IV 100 mls/hr .Q10H SHARON Infusion Ceftriaxone Sodium 2 gm/ 100 mls @ 200 mls/hr 05/19/21 09:00 05/19/21 09:31 Sodium Chloride IV Infused DAILY COUNT INCLUDES THE [facility] Infusion Insulin Aspart 1 - 9 unit 05/18/21 12:00 05/19/21 11:48 Insulin Aspart 300 Unit/3 Ml Pen SUBQ 7 unit 0800,1200,1700,2100 COUNT INCLUDES THE [facility] Administration Protocol Sodium Chloride 10 ml 05/18/21 01:00 05/19/21 08:48 Sodium Chloride Flush 0.9% 10 Ml Syringe IVP 10 ml 0100,0900,1700 COUNT INCLUDES THE [facility] Administration - Lab Result Fish Bone Diagrams: 05/19/21 04:43 05/19/21 04:43 - Additional Planning My Orders: My Active Orders 05/18/21 12:00 Insulin Aspart [NovoLOG] 1 - 9 unit SUBQ 0800,1200,1700,2100 05/18/21 12:46 Blood Glucose Checks - Eating [RC] 0800,1200,1700,2100 05/18/21 12:49 Initiate Hypoglycemia Protocol [RC] .protocol 05/19/21 Consult [Gynecology Consult] [CONS] Routine 05/19/21 08:35 Nutrition Consult [CONS] Routine 05/19/21 09:00 CULTURE, BLOOD #1 [RM] Stat cefTRIAXone [Rocephin] 2 gm Sodium Chloride 0.9% Minibag [Normal Saline 0.9% Minibag] 100 ml IV DAILY 05/20/21 05:00 CRP - C-REACTIVE PROTEIN [CHEM] DAILYLAB 05/21/21 05:00 CRP - C-REACTIVE PROTEIN [CHEM] DAILYLAB 05/22/21 05:00 CRP - C-REACTIVE PROTEIN [CHEM] DAILYLAB Subjective - Subjective Patient Reports: Fever, Pain (in lower abdomen, no N/V/D) Objective Vital Signs: Vital Signs - 24 hr 05/18/21 05/18/21 05/18/21 13:00 16:09 21:00 Temperature 38.3 C H 37.4 C Heart Rate [ 103 H 102 H 94 Brachial] Respiratory 17 18 16 Rate Blood Pressure 155/72 H [Left Brachial artery] Blood Pressure 151/55 H 150/73 H [Right Brachial artery] O2 Saturation 96 97 95 05/18/21 05/19/21 05/19/21 23:33 04:14 08:05 Temperature 38.6 C H 37.1 C 38.1 C H Heart Rate [ 104 H 94 104 H Brachial] Respiratory 18 18 18 Rate Blood Pressure 140/68 H 152/81 H [Left Brachial artery] Blood Pressure 168/87 H [Right Brachial artery] O2 Saturation 96 100 96 05/19/21 09:00 Temperature Heart Rate [ 109 H Brachial] Respiratory Rate Blood Pressure 148/73 H [Left Brachial artery] Blood Pressure [Right Brachial artery] O2 Saturation Oxygen O2 Source Room air I&O (Last 24 Hrs): Intake and Output Totals x24h 05/17/21 05/18/21 05/19/21 23:59 23:59 23:59 Intake Total 2096.667 2965 1863.334 Output Total 150 2100 700 Balance 1946.369 386 4937.334 General: Alert, Oriented x3 HEENT: Mucous membr. moist/pink Neck: Supple, No JVD Neuro: Alert, Non Focal Cardiovascular: Regular rate, No murmurs Respiratory: No respiratory distress, Breath sounds nml Abdomen: Normal bowel sounds, Soft, No tenderness Extremities: No clubbing, Other (1+ pre-tibial edema) - Results Results: Laboratory Results WBC 14.4 x10^3/uL (4.8-10.8) H 05/19/21 04:43 RBC 4.41 10^6/uL (4.20-5.40) 05/19/21 04:43 Hgb 13.5 g/dL (12.0-16.0) 05/19/21 04:43 Hct 40.5 % (37.0-47.0) 05/19/21 04:43 MCV 91.8 fL (81.0-99.0) 05/19/21 04:43 MCH 30.6 pg (27.0-31.0) 05/19/21 04:43 MCHC 33.3 g/dL (32.0-36.0) 05/19/21 04:43 RDW 12.3 % (12.0-15.0) 05/19/21 04:43 Plt Count 136 10^3/uL (130-450) 05/19/21 04:43 MPV 9.2 fL (7.9-10.8) 05/19/21 04:43 Neut # (Auto) 11.8 10^3/uL (1.5-6.6) H 05/19/21 04:43 Lymph # (Auto) 1.1 10^3/uL (1.5-3.5) L 05/19/21 04:43 [place] # (Auto) 1.3 10^3/uL (0.0-1.0) H 05/19/21 04:43 Eos # (Auto) 0.0 10^3/uL (0.0-0.7) 05/19/21 04:43 Baso # (Auto) 0.0 10^3/uL (0.0-0.1) 05/19/21 04:43 Absolute Nucleated RBC 0.00 x10^3/uL 05/19/21 04:43 Total Counted 100 05/18/21 04:37 Band Neuts % (Manual) 6 % (0-10) 05/18/21 04:37 Abnorm Lymph % (Manual) 0 % 05/18/21 04:37 Nucleated RBC % 0.0 /100WBC 05/19/21 04:43 Neutrophils # (Manual) 10.5 10^3/uL (1.5-6.6) H 05/18/21 04:37 Lymphocytes # (Manual) 1.9 10^3/uL (1.5-3.5) 05/18/21 04:37 Monocytes # (Manual) 0.9 10^3/uL (0.0-1.0) 05/18/21 04:37 Eosinophils # (Manual) 0.0 10^3/uL (0-0.7) 05/18/21 04:37 Basophils # (Manual) 0.0 10^3/uL (0-0.1) 05/18/21 04:37 Differential Comment MANUAL DIFFERENTIAL 05/18/21 04:37 Platelet Estimate DECREASED (<130,000) (NORMAL) 05/18/21 04:37 RBC Morph Micro Appear NORMAL APPEARANCE (NORMAL) 05/18/21 04:37 Sodium 132 mmol/L (135-145) L 05/19/21 04:43 Potassium 3.5 mmol/L (3.5-5.0) 05/19/21 04:43 Chloride 98 mmol/L (101-111) L 05/19/21 04:43 Carbon Dioxide 21 mmol/L (21-32) 05/19/21 04:43 Anion Gap 13.0 (6-13) 05/19/21 04:43 BUN 13 mg/dL (6-20) 05/19/21 04:43 Creatinine 0.8 mg/dL (0.4-1.0) 05/19/21 04:43 Estimated GFR (MDRD) 71 (>89) L 05/19/21 04:43 Glucose 210 mg/dL (70-100) H 05/19/21 04:43 POC Whole Bld Glucose 299 mg/dL (70 - 100) H 05/19/21 11:38 Estimat Average Glucose 255 mg/dL (70-100) H 05/18/21 04:37 Hemoglobin A1c % 10.5 % (4.27-6.07) H 05/18/21 04:37 Lactic Acid 1.4 mmol/L (0.5-2.2) 05/19/21 09:00 Calcium 8.3 mg/dL (8.5-10.3) L 05/19/21 04:43 Magnesium 1.7 mg/dL (1.7-2.8) 05/17/21 16:39 Total Bilirubin 1.4 mg/dL (0.2-1.0) H 05/17/21 16:39 AST 25 IU/L (10-42) 05/17/21 16:39 ALT 30 IU/L (10-60) 05/17/21 16:39 Alkaline Phosphatase 78 IU/L (42-121) 05/17/21 16:39 C-Reactive Protein 18.9 mg/dL (0-1.0) H 05/19/21 09:00 Total Protein 7.6 g/dL (6.7-8.2) 05/17/21 16:39 Albumin 3.6 g/dL (3.2-5.5) 05/17/21 16:39 Globulin 4.0 g/dL (2.1-4.2) 05/17/21 16:39 Albumin/Globulin Ratio 0.9 (1.0-2.2) L 05/17/21 16:39 Lipase 182 U/L (22-51) H 05/17/21 16:39 TSH 0.76 uIU/mL (0.34-5.60) 05/17/21 16:39 Urine Color YELLOW 05/17/21 17:00 Urine Clarity HAZY (CLEAR) 05/17/21 17:00 Urine pH 5.5 PH (5.0-7.5) 05/17/21 17:00 Ur Specific Theodosia 1.015 (1.002-1.030) 05/17/21 17:00 Urine Protein 30 mg/dL (NEGATIVE) H 05/17/21 17:00 Urine Glucose (UA) 500 mg/dL (NEGATIVE) H 05/17/21 17:00 Urine Ketones 15 mg/dL (NEGATIVE) H 05/17/21 17:00 Urine Occult Blood SMALL (NEGATIVE) H 05/17/21 17:00 Urine Nitrite POSITIVE (NEGATIVE) H 05/17/21 17:00 Urine Bilirubin NEGATIVE (NEGATIVE) 05/17/21 17:00 Urine Urobilinogen 0.2 (NORMAL) E.U./dL (NORMAL) 05/17/21 17:00 Ur Leukocyte Esterase NEGATIVE (NEGATIVE) 05/17/21 17:00 Urine RBC 6-10 /HPF (0-5) H 05/17/21 17:00 Urine WBC 11-25 /HPF (0-5) H 05/17/21 17:00 Ur Squamous Epith Cells FEW Squamous (<= Few) 05/17/21 17:00 Urine Bacteria Many /HPF (None Seen) H 05/17/21 17:00 Ur Microscopic Review INDICATED 05/17/21 17:00 Urine Culture Comments INDICATED 05/17/21 17:00 Nasal Adenovirus (PCR) NOT DETECTED 05/17/21 17:40 Nasal B. parapertussis DNA (PCR) NOT DETECTED 05/17/21 17:40 Nasal Coronavir 229E PCR NOT DETECTED 05/17/21 17:40 Nasal Coronavir HKU1 PCR NOT DETECTED 05/17/21 17:40 Nasal Coronavir NL63 PCR NOT DETECTED 05/17/21 17:40 Nasal Coronavir OC43 PCR NOT DETECTED 05/17/21 17:40 Nasal Enterovir/Rhinovir PCR NOT DETECTED 05/17/21 17:40 Nasal Influenza B PCR NOT DETECTED 05/17/21 17:40 Nasal Influenza A PCR NOT DETECTED 05/17/21 17:40 Nasal Parainfluen 1 PCR NOT DETECTED 05/17/21 17:40 Nasal Parainfluen 2 PCR NOT DETECTED 05/17/21 17:40 Nasal Parainfluen 3 PCR NOT DETECTED 05/17/21 17:40 Nasal Parainfluen 4 PCR NOT DETECTED 05/17/21 17:40 Nasal RSV (PCR) NOT DETECTED 05/17/21 17:40 Nasal B.pertussis DNA PCR NOT DETECTED 05/17/21 17:40 Nasal C.pneumoniae (PCR) NOT DETECTED 05/17/21 17:40 Rhett Human Metapneumo PCR NOT DETECTED 05/17/21 17:40 Nasal M.pneumoniae (PCR) NOT DETECTED 05/17/21 17:40 Nasal SARS-CoV-2 (PCR) NOT DETECTED 05/17/21 17:40 Ethyl Alcohol < 5.0 mg/dL 05/17/21 16:39 Serum Ketones NEGATIVE (NEGATIVE) 05/17/21 16:39
[2021-05-19] MEDS: ACETAMINOPHEN 325 MG TABLET PO PRN (14:00)
--- NOTE | 2021-05-19 20:38 | CONSULTATION NOTE ---
Referring Provider Name of Referring Provider:: Dr. Guillen Consult Date: 05/19/21 Chief Complaint - Chief Complaint Chief Complaint: urinary retention History of Present Illness - Admitted From Admitted From:: ER - History of Present Illness HPI Comment/Other: ID: Patient is a 70 yo admitted with urosepsis in the the setting of poor glycemic control now with urinary retention. Patient presented to the ED on 05/17/21 with complaint of chills, headache, urinary frequency and urinary incontinence present for 2 days. Had been lethargic and somewhat obtunded. Blood glucose was 414 at home. Tachycardic to the 140s upon presentation to the ED, received diltiazem 15 mg IV x1 which resulted in improved heart rate. UA positive and cultures returned with E.coli UTI. Blood cultures also returned positive for E.coli with sensitivities pen ding. She has been receiving IV ceftriaxone for management. She is more coherent but WBC has continued to rise since admission and was 14.4 this am. She also had a sodium level of 125 with blood glucose of 428. Her Metformin dose had been increased to 1000 twice daily however she only takes 500 mg twice daily due to stomach upset. She also takes glipizide 2.5 mg p.o. daily. She has been started on insulin since admission. She underwent a CT scan that showed bilateral renal inflammation and a distended bladder. Today she was found to be retaining more than a liter of urine. Patient was started on Myrbetriq in January 2021 after a gynecologic exam. She reported urinary incontinence. History is limited but patient endorses both stress and urge incontinence. She was also diangosed with a UTI and reports being treated with an antibiotic but does not remember details. Reported that lower abdomen was taut and painful until St was placed. Now abdomen soft and pain relieved. Reports hx of diabetes over 20 years. Not regularly tracking BG or limiting dietary intake. Does endorses some loss of sensation in her feet. Reports she had good glycemic control until arriving on [facility]. HbA1c was 10.5% at admission. She is currently visiting her daughter from [place]. She has been on [facility] for the past month. She plans to remain on [place] for several months. She has had SVDx4, all infants in the 7# range. No forceps deliveries. Reports undergoing a hysterectomy and BSO at age 38 for ovarian cancer. She denies have chemotherapy but endorses taking Premarin/estrogen for 6 years post procedure. PMH: Ovarian cancer, histology unclear Diabetes x20 years HTN Hyperlipidemia Urinary leakage PSH: Total hysterectomy with BSO SOC HX: Lives in [place] Currently staying with daughter in [place] Planning to stay with daughter for several months ROS: As per HPI, otherwise remaining systems are negative. PE: VS: 98.2 100 137/70 24 95 GEN: NAD, still seems somewhat confused HEAD: NCAT. Difficulty with hearing on left side EYES: No scleral icterus or conjunctival injection CV: RRR RESP: CTAB, normal effort ABD: S&NT/ND PSYCH: appropriate affect NEURO: alert and oriented, normal gait and coordination EXT: WWP JUNIOR NETWORK ADMINISTRATOR: Deferred given surgical absence of JUNIOR NETWORK ADMINISTRATOR organs and reassuring CT scan Reviewed labs A/P: Patient is a 70 yo admitted with urosepsis in the the setting of poor glycemic control now with urinary retention. URINARY RETENTION: Patient was prescribed mirebegron while also under treatment for UTI. Urinary retention developed in setting of E.coli bacteremia 2/2 pyelonephritis in the setting of poorly controlled DM. -Recommend discontinuation of mirebegron or any other incontinence medications at present Hx is consistent with elements of urge incontinence as well as stress and overflow. Incontinence less of a priority given bacteremia/pyelonephritis. Do not recommend any medication for urge incontinence at presence given predisposition to urinary retention with use -Suspect neurogenic component in the setting for poor glucose control, exacerbated by inflammatory effects of infection. Patient does endorses peripheral neuropathy -Timing of St removal not clear given that instigating event for retention is not clear -Would recommend keeping catheter in place until infection progresses towards resolution and better glucose control is attained *Once st is removed, recommend bladder scan to assess postvoid residual after first void post catheter removal. *If patient does not urinate within 4 hours of removal, recommend bladder scan to assess for continued urinary retention. Would replace if PVR>500 cc -High risk of continued retention given large bladder distention If discharge is delayed by urinary retention/inability to void, may require leg bag teaching Unclear if retention preceded infection or if infection resulted in retention. Will be more clear once infection resolves -Patient will need outpatient follow-up with Urology for assessment of incontinence and urine loss -Patient may benefit from vaginal estrogen use. Shown to decrease UTI and aid with incontinence in post-menopausal women Vaginal estrogen cream [Estrace] Insert 1g per vaginal no more than 2 night per week OR [id number] mg estradiol tablets. Insert one tablet per vagina two nights per week. Major concern with vaginal estrogen is overstimulation of the uterine lining. Patient is s/p hysterectomy; risk profile quite low. Thank you for including me in the care of this patient. History - Past Medical History Cardiovascular: reports: Hypertension Respiratory: reports: None Neuro: reports: None Endocrine/Autoimmune: reports: Type 2 diabetes : reports: Incontinence, Frequency Psych: reports: None Musculoskeletal: reports: None - Past Surgical History /JUNIOR NETWORK ADMINISTRATOR: reports: Hysterectomy - Family & Social History Family History Comment/Other: Patient's father had pancreatic cancer, hypertension and CVA. Patient's mother was diabetic. She has a brother who had an MA and another brother who had end-stage renal disease on hemodialysis. Living arrangement: At home Social History Notes: She is currently visiting her daughter in [facility] from [place]. She does not consume alcohol, tobacco products or recreational substances. - POLST Patient has POLST: No POLST Status: Full Code Meds/Allgy - Home Medications Home Medications: Ambulatory Orders Medication Instructions Recorded Confirmed Ascorbic Acid [Vitamin C] 500 mg PO DAILY 05/18/21 05/18/21 Glipizide [Glipizide Xl] 10 mg PO DAILY 05/18/21 05/18/21 Losartan [Cozaar] 50 mg PO DAILY 05/18/21 05/18/21 Magnesium Oxide [Mag Ox] 250 mg PO DAILY 05/18/21 05/18/21 Mirabegron [Myrbetriq] 25 mg PO DAILY 05/18/21 05/18/21 Simvastatin [Zocor] 20 mg PO QPM 05/18/21 05/18/21 metFORMIN [Glucophage] 500 mg PO BIDWM 05/18/21 05/18/21 - Allergies Allergies/Adverse Reactions: Allergies Allergy/AdvReac Type Severity Reaction Status Date / Time quinine Allergy Intermediate Unknown Verified 05/18/21 11:35 Exam - Vital Signs Vital Signs: Vital Signs x48h Temp Pulse Pulse Pulse Resp BP BP 05/19/21 20:17 98.1 F 95 18 142/75 H 05/19/21 15:57 98.2 F 100 24 137/70 H 05/19/21 14:40 109 H 105 H 156/74 H 05/19/21 13:56 110 H 145/69 H 05/19/21 13:00 99.9 F 110 H 20 178/93 H BP Pulse Ox 05/19/21 20:17 99 05/19/21 15:57 95 05/19/21 14:40 133/63 H 05/19/21 13:56 05/19/21 13:00 96 Conclusion/Plan - Lab Results Fish Bones: 05/20/21 04:21 05/20/21 04:21
[2021-05-19] MEDS: INSULIN GLARGINE 300 UNIT/3 ML PEN SUBQ SCH (20:43)
[2021-05-20] MEDS: SODIUM CHLORIDE FLUSH 0.9% 10 ML SYRINGE IVP SCH ×3 (00:05→15:32)
[2021-05-20] MEDS: SODIUM CHLORIDE 0.9% 1,000 ML IV SCH ×2 (04:48→15:32)
[2021-05-20 05:27] LABS: BASOPHILS % (AUTO) 0.3 %; EOSINOPHILS # (AUTO) 0.2 10^3/uL (0.0-0.7); HCT - HEMATOCRIT 29.4 % (37.0-47.0); LYMPHOCYTES # (AUTO) 1.6 10^3/uL (1.5-3.5); LYMPHOCYTES % (AUTO) 15.7 %; MEAN CORPUSCULAR HEMOGLOBIN 30.6 pg (27.0-31.0); MEAN CORPUSCULAR VOLUME 89.9 fL (81.0-99.0); MEAN PLATELET VOLUME 9.5 fL (7.9-10.8); MONOCYTES # (AUTO) 1.1 10^3/uL (0.0-1.0); MONOCYTES % (AUTO) 11.3 %; NEUTROPHILS % (AUTO) 70.1 %; PLT - PLATELET COUNT 127 10^3/uL (130-450); RED BLOOD COUNT 3.27 10^6/uL (4.20-5.40); RED CELL DISTRIBUTION WIDTH 12.1 % (12.0-15.0)
[2021-05-20 05:39] LABS: CALCIUM 7.7 mg/dL (8.5-10.3); CREATININE 0.7 mg/dL (0.4-1.0); CRP - C-REACTIVE PROTEIN 12.8 mg/dL (0-1.0); POTASSIUM 3.2 mmol/L (3.5-5.0)
[2021-05-20] MEDS ORDERED: POTASSIUM CHLORIDE 20 MEQ TABLET PO ONE (07:08)
[2021-05-20] MEDS: INSULIN ASPART 300 UNIT/3 ML PEN SUBQ SCH ×4 (07:52→20:48)
[2021-05-20] MEDS: cefTRIAXone 2 GM in SODIUM CHLORIDE 0.9% MINIBAG 100 ML IV SCH (08:25)
--- NOTE | 2021-05-20 09:06 | PROVIDER PROGRESS NOTE ---
Assessment/Plan - Problem List (1) E coli bacteremia Assessment/Plan: Patient was admitted on 05/17/21 with lethargy and UTI. Blood cultures from 04/27/21 grew E. coli in 2 out of 2 bottles. Her initial lactic acid level was 2.2 and down to 1.4 on 05/19/21. Patient was started on Rocephin IV in ED. WBC has improved from 14 >> 10 today. Her last fever was 38.1 on 05/19/21 at 0800. Plan: Continue with Rocephin at 2 g IV daily due to bacteremia and pyelonephritis. Change IV antibiotic to PO after 24 hours afebrile. Continue antibiotics for 14 days. Continue IV hydration with normal saline at 100 mL/h. (2) Pyelonephritis due to Escherichia coli Assessment/Plan: Patient was admitted with chills, headache, urinary frequency and urgency. She was found to have E. Coli in her urine and blood. A CT of abdomen and pelvis done 05/18/21 and showed "bilateral kidney stranding" which is consistent with pyelonephritis. E coli has the same sensitivity in blood and urine to Rocephin. WBC has improved form 14 to 10 today. Plan: Continue Rocephin IV daily. Change IV antibiotic to PO after 24 hours afebrile. Continue antibiotics for 14 days. Continue IV hydration with normal saline at 100 mL/h. Tylenol 650 mg p.o. every 4 hours as needed for pain and/or fever. (3) Urinary retention Assessment/Plan: Patient was admitted on 05/17/21 with UTI and bactermia and CT of the Abdomen/ pelvis on 05/18/21 showed " Distension of the urinary bladder". Patient's daughter reported that she had a UTI in Jan 2021 that was treated in [place]. At that time she was started on Myrbetriq for bladder spasm which helped with urinary incontinence, however she stopped taking 2 weeks ago due to monthly co-pay of $100. On 05/19/21 she complained of lower abdominal pain and found to have 1035 mls of retained urine. A Jacob catheter was inserted on 05/19/21 for bladder distention with 1100mls out. Urinary retention is most likely secondary to diabetic jorge l ropathy. Plan: Continue with Jacob to manage bladder distention. Continue to work with [facility] [employer] regarding the best med for urinary bladder distension and probable overflow incontinence. (4) Diabetes mellitus Qualifiers: Diabetes mellitus type: type 2 Diabetes mellitus rigging helper insulin use: unspecified penitentiary insulin use status Diabetes mellitus complication status: with neurologic complications Diabetes mellitus complication detail: with unspecified neuropathy Qualified Code(s): E11.40 - Type 2 diabetes mellitus with diabetic neuropathy, unspecified Assessment/Plan: She is a poorly controlled Type 2 diabetic with an admission A1c of 10.5. Initial glucose was 400s. She is supposed to be on Metformin 1000mg PO twice daily however, she was only taking 500mg PO twice daily due to upsetting her stomach with higher doses. She also takes Glipizide 2.5mg PO daily. She reported that her last 3 A1c's in [place] were 7>> 8>> 10. She also reported that she was not on any special diet, was eating sugar ad axel, and did not do figerstick monitoring. Bedside glucose was ranging high 200s- 300s yesterday so lantus was increased to 8 units. Morning bedside glucose was 164. Nutrition consult with patient and daughter was completed yesterday, 05/19/21. Plan: Continue to hold oral diabetic medications while inpatient. Continue with sliding scale insulin and Accu-Cheks before every meal and at bedtime. Continue Lantus 8 units SQ nightly (5) Hypertension Assessment/Plan: Patient has a history of Hypertension and takes Losartan 50mg PO daily. She presented to ER with BP 200 systolic. Today her systolic blood pressure is 120- 130s. Plan: Give Labetalol 10 mg IVP every 4 hours prn systolic blood pressure greater than 160. (6) Hyperlipidemia Assessment/Plan: Patient has a history of hyperlipidemia and take Simvastatin 20mg nightly at home. Plan: Resume simvastatin when able to tolerate PO. (7) Hypokalemia Assessment/Plan: Potassium has been slowly trending down since admission on 04/27/21 from 4.4>> 3.6>> 3.5>> to 3.2 today. Plan: Administer 40mEq of Potassium chloride PO x1 today. Monitor BMP and correct hypokalemia as needed. (8) Hyponatremia Assessment/Plan: Admission Na was 125 and glucose was 428. She recieved 1L of normal saline in t ED and then started on normal saline as 100ml/hr. Today her Na is 133. Suspect pseudohyponatremia vs hypovolemic hyponatremia. Plan: Continue IV hydration with normal saline at 100 mL/h and consider discontinuing tomorrow morning if Na continues to trend up. Follow BMP daily (9) Tachycardia Assessment/Plan: On admission patient was sinus tachycardia with her heart rate as high as 140s. Tachycardia has resolved. Today her heart rate 80-90s and she has been afebrile for 24 hours. Tmax 38.6 on 05/18/21. Plan: Continue to monitor and if rise is related to fever, administer Acetaminophen prn. (10) Altered mental status Qualifiers: Altered mental status type: delirium Qualified Code(s): R41.0 - Disorientation, unspecified Assessment/Plan: Upon admission patient was confused and lethargic. Head CT was negative for acute intracranial process. Her mentation improved in the ED after IV hydration and antibiotic. Today she is alert and oriented and her initial altered mental status has resolved. It was most likely secondary to bacteremia and UTI. Plan: Continue to work with PT to prevent deconditioning and regain strength. - Current Meds Current Meds: Current Medications Generic Name Dose Route Start Last Admin Trade Name Freq PRN Reason Stop Dose Admin Acetaminophen 650 mg 05/17/21 18:39 05/19/21 14:00 Acetaminophen 325 Mg Tablet PO 650 mg Q4HR PRN Administration Pain or Fever > 38C (100.4F) Sodium Chloride 1,000 mls @ 100 mls/hr 05/17/21 19:00 05/20/21 04:48 Normal Saline 0.9% IV 100 mls/hr .Q10H SHARON Administration Ceftriaxone Sodium 2 gm/ 100 mls @ 200 mls/hr 05/19/21 09:00 05/20/21 08:55 Sodium Chloride IV Infused DAILY SHARON Infusion Insulin Aspart 2 - 10 unit 05/19/21 17:00 05/20/21 07:52 Insulin Aspart 300 Unit/3 Ml Pen SUBQ 2 unit 0800,1200,1700,2100 SHARON Administration Protocol Insulin Glargine 8 unit 05/19/21 21:00 05/19/21 20:43 Insulin Glargine 300 Unit/3 Ml Pen SUBQ 8 unit QPM SHARON Administration Sodium Chloride 10 ml 05/18/21 01:00 05/20/21 07:53 Sodium Chloride Flush 0.9% 10 Ml Syringe IVP 10 ml 0100,0900,1700 SHARON Administration - Lab Result Fish Bone Diagrams: 05/20/21 04:21 05/20/21 04:21 - Diagnostic Imaging Results Diagnostic Imaging Results: Final report reviewed - Additional Planning Consult/Specialty: Gynecology Plan Discussed with:: Patient <Devi Domínguez - Last Filed: 05/20/21 17:53> - Current Meds Current Meds: Current Medications Generic Name Dose Route Start Last Admin Trade Name Freq PRN Reason Stop Dose Admin Acetaminophen 650 mg 05/17/21 18:39 05/19/21 14:00 Acetaminophen 325 Mg Tablet PO 650 mg Q4HR PRN Administration Pain or Fever > 38C (100.4F) Cyanocobalamin 500 mcg 05/20/21 10:00 05/20/21 09:32 Cyanocobalamin 500 Mcg Tablet PO 500 mcg DAILY SHARON Administration Sodium Chloride 1,000 mls @ 100 mls/hr 05/17/21 19:00 05/20/21 04:48 Normal Saline 0.9% IV 100 mls/hr .Q10H SHARON Administration Ceftriaxone Sodium 2 gm/ 100 mls @ 200 mls/hr 05/19/21 09:00 05/20/21 08:55 Sodium Chloride IV Infused DAILY SHARON Infusion Insulin Aspart 2 - 10 unit 05/19/21 17:00 05/20/21 07:52 Insulin Aspart 300 Unit/3 Ml Pen SUBQ 2 unit 0800,1200,1700,2100 SHARON Administration Protocol Insulin Glargine 8 unit 05/19/21 21:00 05/19/21 20:43 Insulin Glargine 300 Unit/3 Ml Pen SUBQ 8 unit QPM SHARON Administration Sodium Chloride 10 ml 05/18/21 01:00 05/20/21 07:53 Sodium Chloride Flush 0.9% 10 Ml Syringe IVP 10 ml 0100,0900,1700 SHARON Administration - Lab Result Fish Bone Diagrams: 05/20/21 04:21 05/20/21 04:21 - Additional Planning My Orders: My Active Orders 05/19/21 13:11 Jacob Insertion [RC] QSHIFT 05/19/21 17:00 Insulin Aspart [NovoLOG] 2 - 10 unit SUBQ 0800,1200,1700,2100 05/19/21 21:00 Insulin Glargine [Lantus Solostar] 8 unit SUBQ QPM 05/20/21 10:00 Cyanocobalamin [Vitamin B-12] 500 mcg PO DAILY 05/21/21 05:00 CRP - C-REACTIVE PROTEIN [CHEM] DAILYLAB 05/22/21 05:00 CRP - C-REACTIVE PROTEIN [CHEM] DAILYLAB <Alisha Guillen - Last Filed: 05/20/21 19:06> Subjective - Subjective Patient Reports: Feeling Better, Resting Comfortably, No Complaints (Patient is sitting up in bed eating breakfast. Denies pain or urinary complaints.) Nursing Reports: No Complaints <Devi Domínguez - Last Filed: 05/20/21 17:53> - Subjective Patient Reports: No Complaints <Alisha Guillen - Last Filed: 05/20/21 19:06> Objective Vital Signs: Vital Signs - 24 hr 05/19/21 05/19/21 05/19/21 13:00 13:56 14:40 Temperature 37.7 C Heart Rate [ 110 H 110 H Brachial] Heart Rate [ 109 H Sitting] Heart Rate [ 105 H Supine] Respiratory 20 Rate Blood Pressure 178/93 H 145/69 H [Left Brachial artery] Blood Pressure [Right Brachial artery] Blood Pressure 156/74 H [Sitting] Blood Pressure 133/63 H [Supine] O2 Saturation 96 05/19/21 05/19/21 05/19/21 15:57 20:17 23:32 Temperature 36.8 C 36.7 C 37.5 C Heart Rate [ 100 95 93 Brachial] Heart Rate [ Sitting] Heart Rate [ Supine] Respiratory 24 18 14 Rate Blood Pressure 137/70 H 142/75 H [Left Brachial artery] Blood Pressure 134/63 H [Right Brachial artery] Blood Pressure [Sitting] Blood Pressure [Supine] O2 Saturation 95 99 99 05/20/21 05/20/21 04:43 08:26 Temperature 37.1 C 37.0 C Heart Rate [ 94 86 Brachial] Heart Rate [ Sitting] Heart Rate [ Supine] Respiratory 17 16 Rate Blood Pressure [Left Brachial artery] Blood Pressure 137/65 H 127/58 L [Right Brachial artery] Blood Pressure [Sitting] Blood Pressure [Supine] O2 Saturation 95 95 Oxygen O2 Source Room air I&O (Last 24 Hrs): Intake and Output Totals x24h 05/18/21 05/19/21 05/20/21 23:59 23:59 23:59 Intake Total 2965 3257.000 1081.667 Output Total 2100 2650 700 Balance 865 607.000 381.667 General: Alert, Oriented x3, Cooperative, No acute distress HEENT: Atraumatic, EOMI Neck: Supple Neuro: Alert, Oriented Times 3 Cardiovascular: Regular rate, No murmurs Respiratory: Chest non-tender, No respiratory distress, Breath sounds nml Abdomen: Normal bowel sounds, Soft, No tenderness Extremities: No edema, No tenderness/swelling Skin: No rashes - Results Results: Laboratory Results WBC 10.0 x10^3/uL (4.8-10.8) 05/20/21 04:21 RBC 3.27 10^6/uL (4.20-5.40) L 05/20/21 04:21 Hgb 10.0 g/dL (12.0-16.0) L 05/20/21 04:21 Hct 29.4 % (37.0-47.0) L 05/20/21 04:21 MCV 89.9 fL (81.0-99.0) 05/20/21 04:21 MCH 30.6 pg (27.0-31.0) 05/20/21 04:21 MCHC 34.0 g/dL (32.0-36.0) 05/20/21 04:21 RDW 12.1 % (12.0-15.0) 05/20/21 04:21 Plt Count 127 10^3/uL (130-450) L 05/20/21 04:21 MPV 9.5 fL (7.9-10.8) 05/20/21 04:21 Neut # (Auto) 7.0 10^3/uL (1.5-6.6) H 05/20/21 04:21 Lymph # (Auto) 1.6 10^3/uL (1.5-3.5) 05/20/21 04:21 Mcintosh # (Auto) 1.1 10^3/uL (0.0-1.0) H 05/20/21 04:21 Eos # (Auto) 0.2 10^3/uL (0.0-0.7) 05/20/21 04:21 Baso # (Auto) 0.0 10^3/uL (0.0-0.1) 05/20/21 04:21 Absolute Nucleated RBC 0.00 x10^3/uL 05/20/21 04:21 Total Counted 100 05/18/21 04:37 Band Neuts % (Manual) 6 % (0-10) 05/18/21 04:37 Abnorm Lymph % (Manual) 0 % 05/18/21 04:37 Nucleated RBC % 0.0 /100WBC 05/20/21 04:21 Neutrophils # (Manual) 10.5 10^3/uL (1.5-6.6) H 05/18/21 04:37 Lymphocytes # (Manual) 1.9 10^3/uL (1.5-3.5) 05/18/21 04:37 Monocytes # (Manual) 0.9 10^3/uL (0.0-1.0) 05/18/21 04:37 Eosinophils # (Manual) 0.0 10^3/uL (0-0.7) 05/18/21 04:37 Basophils # (Manual) 0.0 10^3/uL (0-0.1) 05/18/21 04:37 Differential Comment MANUAL DIFFERENTIAL 05/18/21 04:37 Platelet Estimate DECREASED (<130,000) (NORMAL) 05/18/21 04:37 RBC Morph Micro Appear NORMAL APPEARANCE (NORMAL) 05/18/21 04:37 Sodium 133 mmol/L (135-145) L 05/20/21 04:21 Potassium 3.2 mmol/L (3.5-5.0) L 05/20/21 04:21 Chloride 100 mmol/L (101-111) L 05/20/21 04:21 Carbon Dioxide 22 mmol/L (21-32) 05/20/21 04:21 Anion Gap 11.0 (6-13) 05/20/21 04:21 BUN 12 mg/dL (6-20) 05/20/21 04:21 Creatinine 0.7 mg/dL (0.4-1.0) 05/20/21 04:21 Estimated GFR (MDRD) 83 (>89) L 05/20/21 04:21 Glucose 186 mg/dL (70-100) H 05/20/21 04:21 POC Whole Bld Glucose 164 mg/dL (70 - 100) H 05/20/21 07:38 Estimat Average Glucose 255 mg/dL (70-100) H 05/18/21 04:37 Hemoglobin A1c % 10.5 % (4.27-6.07) H 05/18/21 04:37 Lactic Acid 1.4 mmol/L (0.5-2.2) 05/19/21 09:00 Calcium 7.7 mg/dL (8.5-10.3) L 05/20/21 04:21 Magnesium 1.7 mg/dL (1.7-2.8) 05/17/21 16:39 Total Bilirubin 1.4 mg/dL (0.2-1.0) H 05/17/21 16:39 AST 25 IU/L (10-42) 05/17/21 16:39 ALT 30 IU/L (10-60) 05/17/21 16:39 Alkaline Phosphatase 78 IU/L (42-121) 05/17/21 16:39 C-Reactive Protein 12.8 mg/dL (0-1.0) H 05/20/21 04:21 Total Protein 7.6 g/dL (6.7-8.2) 05/17/21 16:39 Albumin 3.6 g/dL (3.2-5.5) 05/17/21 16:39 Globulin 4.0 g/dL (2.1-4.2) 05/17/21 16:39 Albumin/Globulin Ratio 0.9 (1.0-2.2) L 05/17/21 16:39 Lipase 182 U/L (22-51) H 05/17/21 16:39 Vitamin B12 210 pg/mL (180-914) 05/20/21 04:21 TSH 0.76 uIU/mL (0.34-5.60) 05/17/21 16:39 Urine Color YELLOW 05/17/21 17:00 Urine Clarity HAZY (CLEAR) 05/17/21 17:00 Urine pH 5.5 PH (5.0-7.5) 05/17/21 17:00 Ur Specific Haskins 1.015 (1.002-1.030) 05/17/21 17:00 Urine Protein 30 mg/dL (NEGATIVE) H 05/17/21 17:00 Urine Glucose (UA) 500 mg/dL (NEGATIVE) H 05/17/21 17:00 Urine Ketones 15 mg/dL (NEGATIVE) H 05/17/21 17:00 Urine Occult Blood SMALL (NEGATIVE) H 05/17/21 17:00 Urine Nitrite POSITIVE (NEGATIVE) H 05/17/21 17:00 Urine Bilirubin NEGATIVE (NEGATIVE) 05/17/21 17:00 Urine Urobilinogen 0.2 (NORMAL) E.U./dL (NORMAL) 05/17/21 17:00 Ur Leukocyte Esterase NEGATIVE (NEGATIVE) 05/17/21 17:00 Urine RBC 6-10 /HPF (0-5) H 05/17/21 17:00 Urine WBC 11-25 /HPF (0-5) H 05/17/21 17:00 Ur Squamous Epith Cells FEW Squamous (<= Few) 05/17/21 17:00 Urine Bacteria Many /HPF (None Seen) H 05/17/21 17:00 Ur Microscopic Review INDICATED 05/17/21 17:00 Urine Culture Comments INDICATED 05/17/21 17:00 Nasal Adenovirus (PCR) NOT DETECTED 05/17/21 17:40 Nasal B. parapertussis DNA (PCR) NOT DETECTED 05/17/21 17:40 Nasal Coronavir 229E PCR NOT DETECTED 05/17/21 17:40 Nasal Coronavir HKU1 PCR NOT DETECTED 05/17/21 17:40 Nasal Coronavir NL63 PCR NOT DETECTED 05/17/21 17:40 Nasal Coronavir OC43 PCR NOT DETECTED 05/17/21 17:40 Nasal Enterovir/Rhinovir PCR NOT DETECTED 05/17/21 17:40 Nasal Influenza B PCR NOT DETECTED 05/17/21 17:40 Nasal Influenza A PCR NOT DETECTED 05/17/21 17:40 Nasal Parainfluen 1 PCR NOT DETECTED 05/17/21 17:40 Nasal Parainfluen 2 PCR NOT DETECTED 05/17/21 17:40 Nasal Parainfluen 3 PCR NOT DETECTED 05/17/21 17:40 Nasal Parainfluen 4 PCR NOT DETECTED 05/17/21 17:40 Nasal RSV (PCR) NOT DETECTED 05/17/21 17:40 Nasal B.pertussis DNA PCR NOT DETECTED 05/17/21 17:40 Nasal C.pneumoniae (PCR) NOT DETECTED 05/17/21 17:40 Rhett Human Metapneumo PCR NOT DETECTED 05/17/21 17:40 Nasal M.pneumoniae (PCR) NOT DETECTED 05/17/21 17:40 Nasal SARS-CoV-2 (PCR) NOT DETECTED 05/17/21 17:40 Ethyl Alcohol < 5.0 mg/dL 05/17/21 16:39 Serum Ketones NEGATIVE (NEGATIVE) 05/17/21 16:39 <Devi Domínguez - Last Filed: 05/20/21 17:53> Vital Signs: Vital Signs - 24 hr 05/19/21 05/19/21 05/19/21 13:00 13:56 14:40 Temperature 37.7 C Heart Rate [ 110 H 110 H Brachial] Heart Rate [ 109 H Sitting] Heart Rate [ 105 H Supine] Respiratory 20 Rate Blood Pressure 178/93 H 145/69 H [Left Brachial artery] Blood Pressure [Right Brachial artery] Blood Pressure 156/74 H [Sitting] Blood Pressure 133/63 H [Supine] O2 Saturation 96 05/19/21 05/19/21 05/19/21 15:57 20:17 23:32 Temperature 36.8 C 36.7 C 37.5 C Heart Rate [ 100 95 93 Brachial] Heart Rate [ Sitting] Heart Rate [ Supine] Respiratory 24 18 14 Rate Blood Pressure 137/70 H 142/75 H [Left Brachial artery] Blood Pressure 134/63 H [Right Brachial artery] Blood Pressure [Sitting] Blood Pressure [Supine] O2 Saturation 95 99 99 05/20/21 05/20/21 04:43 08:26 Temperature 37.1 C 37.0 C Heart Rate [ 94 86 Brachial] Heart Rate [ Sitting] Heart Rate [ Supine] Respiratory 17 16 Rate Blood Pressure [Left Brachial artery] Blood Pressure 137/65 H 127/58 L [Right Brachial artery] Blood Pressure [Sitting] Blood Pressure [Supine] O2 Saturation 95 95 Oxygen O2 Source Room air I&O (Last 24 Hrs): Intake and Output Totals x24h 05/18/21 05/19/21 05/20/21 23:59 23:59 23:59 Intake Total 2965 3257.000 1441.667 Output Total 2100 2650 700 Balance 865 607.000 741.667 - Results Results: Laboratory Results WBC 10.0 x10^3/uL (4.8-10.8) 05/20/21 04:21 RBC 3.27 10^6/uL (4.20-5.40) L 05/20/21 04:21 Hgb 10.0 g/dL (12.0-16.0) L 05/20/21 04:21 Hct 29.4 % (37.0-47.0) L 05/20/21 04:21 MCV 89.9 fL (81.0-99.0) 05/20/21 04:21 MCH 30.6 pg (27.0-31.0) 05/20/21 04:21 MCHC 34.0 g/dL (32.0-36.0) 05/20/21 04:21 RDW 12.1 % (12.0-15.0) 05/20/21 04:21 Plt Count 127 10^3/uL (130-450) L 05/20/21 04:21 MPV 9.5 fL (7.9-10.8) 05/20/21 04:21 Neut # (Auto) 7.0 10^3/uL (1.5-6.6) H 05/20/21 04:21 Lymph # (Auto) 1.6 10^3/uL (1.5-3.5) 05/20/21 04:21 Mcintosh # (Auto) 1.1 10^3/uL (0.0-1.0) H 05/20/21 04:21 Eos # (Auto) 0.2 10^3/uL (0.0-0.7) 05/20/21 04:21 Baso # (Auto) 0.0 10^3/uL (0.0-0.1) 05/20/21 04:21 Absolute Nucleated RBC 0.00 x10^3/uL 05/20/21 04:21 Total Counted 100 05/18/21 04:37 Band Neuts % (Manual) 6 % (0-10) 05/18/21 04:37 Abnorm Lymph % (Manual) 0 % 05/18/21 04:37 Nucleated RBC % 0.0 /100WBC 05/20/21 04:21 Neutrophils # (Manual) 10.5 10^3/uL (1.5-6.6) H 05/18/21 04:37 Lymphocytes # (Manual) 1.9 10^3/uL (1.5-3.5) 05/18/21 04:37 Monocytes # (Manual) 0.9 10^3/uL (0.0-1.0) 05/18/21 04:37 Eosinophils # (Manual) 0.0 10^3/uL (0-0.7) 05/18/21 04:37 Basophils # (Manual) 0.0 10^3/uL (0-0.1) 05/18/21 04:37 Differential Comment MANUAL DIFFERENTIAL 05/18/21 04:37 Platelet Estimate DECREASED (<130,000) (NORMAL) 05/18/21 04:37 RBC Morph Micro Appear NORMAL APPEARANCE (NORMAL) 05/18/21 04:37 Sodium 133 mmol/L (135-145) L 05/20/21 04:21 Potassium 3.2 mmol/L (3.5-5.0) L 05/20/21 04:21 Chloride 100 mmol/L (101-111) L 05/20/21 04:21 Carbon Dioxide 22 mmol/L (21-32) 05/20/21 04:21 Anion Gap 11.0 (6-13) 05/20/21 04:21 BUN 12 mg/dL (6-20) 05/20/21 04:21 Creatinine 0.7 mg/dL (0.4-1.0) 05/20/21 04:21 Estimated GFR (MDRD) 83 (>89) L 05/20/21 04:21 Glucose 186 mg/dL (70-100) H 05/20/21 04:21 POC Whole Bld Glucose 164 mg/dL (70 - 100) H 05/20/21 07:38 Estimat Average Glucose 255 mg/dL (70-100) H 05/18/21 04:37 Hemoglobin A1c % 10.5 % (4.27-6.07) H 05/18/21 04:37 Lactic Acid 1.4 mmol/L (0.5-2.2) 05/19/21 09:00 Calcium 7.7 mg/dL (8.5-10.3) L 05/20/21 04:21 Magnesium 1.7 mg/dL (1.7-2.8) 05/17/21 16:39 Total Bilirubin 1.4 mg/dL (0.2-1.0) H 05/17/21 16:39 AST 25 IU/L (10-42) 05/17/21 16:39 ALT 30 IU/L (10-60) 05/17/21 16:39 Alkaline Phosphatase 78 IU/L (42-121) 05/17/21 16:39 C-Reactive Protein 12.8 mg/dL (0-1.0) H 05/20/21 04:21 Total Protein 7.6 g/dL (6.7-8.2) 05/17/21 16:39 Albumin 3.6 g/dL (3.2-5.5) 05/17/21 16:39 Globulin 4.0 g/dL (2.1-4.2) 05/17/21 16:39 Albumin/Globulin Ratio 0.9 (1.0-2.2) L 05/17/21 16:39 Lipase 182 U/L (22-51) H 05/17/21 16:39 Vitamin B12 210 pg/mL (180-914) 05/20/21 04:21 TSH 0.76 uIU/mL (0.34-5.60) 05/17/21 16:39 Urine Color YELLOW 05/17/21 17:00 Urine Clarity HAZY (CLEAR) 05/17/21 17:00 Urine pH 5.5 PH (5.0-7.5) 05/17/21 17:00 Ur Specific Haskins 1.015 (1.002-1.030) 05/17/21 17:00 Urine Protein 30 mg/dL (NEGATIVE) H 05/17/21 17:00 Urine Glucose (UA) 500 mg/dL (NEGATIVE) H 05/17/21 17:00 Urine Ketones 15 mg/dL (NEGATIVE) H 05/17/21 17:00 Urine Occult Blood SMALL (NEGATIVE) H 05/17/21 17:00 Urine Nitrite POSITIVE (NEGATIVE) H 05/17/21 17:00 Urine Bilirubin NEGATIVE (NEGATIVE) 05/17/21 17:00 Urine Urobilinogen 0.2 (NORMAL) E.U./dL (NORMAL) 05/17/21 17:00 Ur Leukocyte Esterase NEGATIVE (NEGATIVE) 05/17/21 17:00 Urine RBC 6-10 /HPF (0-5) H 05/17/21 17:00 Urine WBC 11-25 /HPF (0-5) H 05/17/21 17:00 Ur Squamous Epith Cells FEW Squamous (<= Few) 05/17/21 17:00 Urine Bacteria Many /HPF (None Seen) H 05/17/21 17:00 Ur Microscopic Review INDICATED 05/17/21 17:00 Urine Culture Comments INDICATED 05/17/21 17:00 Nasal Adenovirus (PCR) NOT DETECTED 05/17/21 17:40 Nasal B. parapertussis DNA (PCR) NOT DETECTED 05/17/21 17:40 Nasal Coronavir 229E PCR NOT DETECTED 05/17/21 17:40 Nasal Coronavir HKU1 PCR NOT DETECTED 05/17/21 17:40 Nasal Coronavir NL63 PCR NOT DETECTED 05/17/21 17:40 Nasal Coronavir OC43 PCR NOT DETECTED 05/17/21 17:40 Nasal Enterovir/Rhinovir PCR NOT DETECTED 05/17/21 17:40 Nasal Influenza B PCR NOT DETECTED 05/17/21 17:40 Nasal Influenza A PCR NOT DETECTED 05/17/21 17:40 Nasal Parainfluen 1 PCR NOT DETECTED 05/17/21 17:40 Nasal Parainfluen 2 PCR NOT DETECTED 05/17/21 17:40 Nasal Parainfluen 3 PCR NOT DETECTED 05/17/21 17:40 Nasal Parainfluen 4 PCR NOT DETECTED 05/17/21 17:40 Nasal RSV (PCR) NOT DETECTED 05/17/21 17:40 Nasal B.pertussis DNA PCR NOT DETECTED 05/17/21 17:40 Nasal C.pneumoniae (PCR) NOT DETECTED 05/17/21 17:40 Rhett Human Metapneumo PCR NOT DETECTED 05/17/21 17:40 Nasal M.pneumoniae (PCR) NOT DETECTED 05/17/21 17:40 Nasal SARS-CoV-2 (PCR) NOT DETECTED 05/17/21 17:40 Ethyl Alcohol < 5.0 mg/dL 05/17/21 16:39 Serum Ketones NEGATIVE (NEGATIVE) 05/17/21 16:39 <Alisha Guillen - Last Filed: 05/20/21 19:06> ABX Reporting Has patient been on IV antibiotics over the past 48 hours?: Yes <Devi Domínguez - Last Filed: 05/20/21 17:53>
[2021-05-20] MEDS ORDERED: CYANOCOBALAMIN 500 MCG TABLET PO SCH (10:00)
[2021-05-20] MEDS: ATORVASTATIN 10 MG TABLET PO SCH (20:47)
[2021-05-20] MEDS: INSULIN GLARGINE 300 UNIT/3 ML PEN SUBQ SCH (20:48)
[2021-05-21] MEDS: SODIUM CHLORIDE FLUSH 0.9% 10 ML SYRINGE IVP SCH ×3 (00:22→17:07)
[2021-05-21] MEDS: SODIUM CHLORIDE 0.9% 1,000 ML IV SCH (01:22)
[2021-05-21 06:20] LABS: BASOPHILS % (AUTO) 0.2 %; EOSINOPHILS % (AUTO) 2.4 %; HCT - HEMATOCRIT 28.5 % (37.0-47.0); HGB - HEMOGLOBIN 9.6 g/dL (12.0-16.0); LYMPHOCYTES % (AUTO) 25.1 %; MEAN CORPUSCULAR HEMOGLOBIN 30.6 pg (27.0-31.0); MEAN CORPUSCULAR HGB CONC 33.7 g/dL (32.0-36.0); MEAN CORPUSCULAR VOLUME 90.8 fL (81.0-99.0); MEAN PLATELET VOLUME 9.1 fL (7.9-10.8); MONOCYTES % (AUTO) 9.3 %; NEUTROPHILS % (AUTO) 62.3 %; PLT - PLATELET COUNT 149 10^3/uL (130-450); RED BLOOD COUNT 3.14 10^6/uL (4.20-5.40); RED CELL DISTRIBUTION WIDTH 12.4 % (12.0-15.0); WHITE BLOOD COUNT 8.4 x10^3/uL (4.8-10.8)
[2021-05-21 06:25] LABS: ABNORMAL LYMPHS % (MANUAL) 0 %
[2021-05-21 06:40] LABS: CALCIUM 7.7 mg/dL (8.5-10.3); CREATININE 0.7 mg/dL (0.4-1.0); CRP - C-REACTIVE PROTEIN 7.4 mg/dL (0-1.0); POTASSIUM 3.4 mmol/L (3.5-5.0)
[2021-05-21 07:01] LABS: BAND NEUTROPHILS % (MANUAL) 2 %; EOSINOPHILS # (MANUAL) 0.2 10^3/uL (0-0.7); LYMPHOCYTES % (MANUAL) 20 %; MONOCYTES # (MANUAL) 0.6 10^3/uL (0.0-1.0); NEUTROPHILS # (MANUAL) 5.6 10^3/uL (1.5-6.6); REACTIVE LYMPHS % (MANUAL) 4 %
[2021-05-21 07:02] LABS: DIFFERENTIAL COMMENT MANUAL DIFFERENTIAL; RBC MORPHOLOGY (MULTIPLE) 1+ HYPOCHROMASIA (NORMAL); WBC MORPHOLOGY (MULTIPLE) 1+ REACTIVE LYMPHS (NORMAL)
[2021-05-21] MEDS: INSULIN ASPART 300 UNIT/3 ML PEN SUBQ SCH ×4 (07:52→20:40)
[2021-05-21] MEDS: cefTRIAXone 2 GM in SODIUM CHLORIDE 0.9% MINIBAG 100 ML IV SCH (08:40)
--- NOTE | 2021-05-21 11:24 | PROVIDER PROGRESS NOTE ---
Assessment/Plan - Problem List (1) E coli bacteremia Assessment/Plan: Patient was admitted on 05/17/21 with lethargy and UTI. Blood cultures from 04/27/21 grew E. coli in 2 out of 2 bottles. Her initial lactic acid level was 2.2 and down to 1.4 on 05/19/21. Patient was started on Rocephin IV in ED. WBC has normalized to 8.4 today. Her last fever was 38.1 on 05/19/21 at 0800. Plan: Discontinue Rocephin today and start Levofloxacin 750mg PO daily. Continue antibiotics for total of 14 days, with last dose on May 31. Discontinue IV hydration with normal saline. (2) Pyelonephritis due to Escherichia coli Assessment/Plan: Patient was admitted on 05/17/21 with chills, headache, urinary frequency and urgency. She was found to have E. Coli in her urine and blood. A CT of abdomen and pelvis on 05/18/21 and showed "bilateral kidney stranding" which is consistent with pyelonephritis. E coli has the same sensitivity in blood and urine to Rocephin and Levofloxacin. WBC has normalized to 8.4 today. GNY consult by Dr. Allen recommends Estrace insert 1g per vagina twice weekly OR Vagifem 10mg estradiol tablet inserted vaginally 2 times weekly to decrease UTIs. Not a vailable through inpatient pharmacy. Plan: Discontinue Rocephin today and start Levofloxacine 750mg PO daily. Will continue antibiotics for a total of 14 days, ending on 05/31/21. Upon discharge add Vaginal Estrogen cream or tablet twice a week per PIGMENT PUMPER recommendation to decrease vaginal atrophy and UTI risks. (3) Urinary retention Assessment/Plan: Patient was admitted on 05/17/21 with UTI and bactermia and CT of the Abdomen/ pelvis on 05/18/21 showed "Distension of the urinary bladder". Patient's daughter reported that she had a UTI in Jan 2021 that was treated in [place]. At that time she was started on Myrbetriq for bladder spasm which helped with urinary in continence, however she stopped taking 2 weeks ago due to monthly co-pay of $100. On 05/19/21 she complained of lower abdominal pain and found to have 1035 mls of retained urine. A St catheter was inserted on 05/19/21 for bladder distention with 1100mls out. Urinary retention is most likely secondary to diabetic neuropathy. Consult by PIGMENT PUMPER provider Dr. Allen who recommends "discontinuing Mirebegron due to suspected neurogenic incontinence secondary to poor glycemic control. St discontinuation is recommended when pyelonephritis improves with a postvoid bladder scan to evaluation retention. Consider reinserting st if postvoid residual is > 500mls. Vaginal estrogen cream (Estrace) insert 1g per vaginal 2 times weekly or Vagifem 10mg estradiol tablets inserted vaginally twice weekly to aid in incontinence". Plan: Discontinue St now. Bladder scan in 4 hours and if residual urine is >500, reinsert st. Consider adding on discharge Estrace or Vagifem vaginally twice weekly for urinary retention per Dr. Allen recommendation. (4) Diabetes mellitus Qualifiers: Diabetes mellitus type: type 2 Diabetes mellitus long term care phlebotomist insulin use: unspecified long term care phlebotomist insulin use status Diabetes mellitus complication status: with neurologic complications Diabetes mellitus complication detail: with unspecified neuropathy Qualified Code(s): E11.40 - Type 2 diabetes mellitus with diabetic neuropathy, unspecified Assessment/Plan: She is a poorly controlled Type 2 diabetic with an admission A1c of 10.5. In itial glucose was 400s. She is supposed to be on Metformin 1000mg PO twice daily however, she was only taking 500mg PO twice daily due to upsetting her stomach with higher doses. She also takes Glipizide 2.5mg PO daily. She reported that her last 3 A1c's in [place] were 7>> 8>> 10. She also reported that she was not on any special diet, was eating sugar ad axel, and did not do fingerstick monitoring. Bedside glucose was ranging high 100s- 200s yesterday. Morning bedside glucose was 174. Nutrition consult with patient and daughter was completed on 05/19/21. Patient has expressed that she would like to resume her oral insulin and a have a radical diet change to prevent injectable insulins upon discharge. Plan: Continue to hold Metformin while inpatient due to high potential for mediation interactions. Resume Glipizide at 10 mg PO daily. Decrease Lantus to 5 units SQ night due to starting Glipizide. Continue with sliding scale insulin and Accu-Cheks before every meal and at bedtime. (5) Hypertension Assessment/Plan: Patient has a history of Hypertension and takes Losartan 50mg PO daily. She presented to ER with BP 200 systolic. Today her systolic blood pressure is 120- 130s. Plan: Give Labetalol 10 mg IVP every 4 hours prn systolic blood pressure greater than 160. (6) Hyperlipidemia Assessment/Plan: Patient has a history of hyperlipidemia and take Simvastatin 20mg nightly at home. Plan: Resume Simvastatin 20 mg PO nightly. (7) Hypokalemia Assessment/Plan: Potassium has been slowly trending down since admission on 04/27/21 from 4.4>> 3.6>> 3.5>> to 3.2 on 05/20/21. Yesterday she received 40mEq of Potassium Chloride and today her potassium is 3.4. Plan: Administer 40mEq of Potassium chloride PO x1 today. Monitor BMP and correct hypokalemia as needed. (8) Hyponatremia Assessment/Plan: Admission Na was 125 and glucose was 428. She received 1L of normal saline in the ED and then started on normal saline as 100ml/hr. Today her Na is 134. Suspect pseudohyponatremia vs hypovolemic hyponatremia. Plan: Discontinue IV hydration with normal saline. Continue to monitor Sodium on BMP. - Current Meds Current Meds: Current Medications Generic Name Dose Route Start Last Admin Trade Name Freq PRN Reason Stop Dose Admin Acetaminophen 650 mg 05/17/21 18:39 05/19/21 14:00 Acetaminophen 325 Mg Tablet PO 650 mg Q4HR PRN Administration Pain or Fever > 38C (100.4F) Atorvastatin Calcium 10 mg 05/20/21 21:00 05/20/21 20:47 Atorvastatin 10 Mg Tablet PO 10 mg QPM SHARON Administration Glipizide 10 mg 05/21/21 09:00 05/21/21 08:40 Glipizide Er 2.5 Mg Tablet PO 10 mg DAILYWM SHARON Administration Sodium Chloride 1,000 mls @ 100 mls/hr 05/17/21 19:00 05/21/21 01:22 Normal Saline 0.9% IV 05/21/21 11:30 100 mls/hr .Q10H SHARON Administration Ceftriaxone Sodium 2 gm/ 100 mls @ 200 mls/hr 05/19/21 09:00 05/21/21 09:10 Sodium Chloride IV 05/21/21 15:00 Infused DAILY SHARON Infusion Insulin Aspart 2 - 10 unit 05/19/21 17:00 05/21/21 07:52 Insulin Aspart 300 Unit/3 Ml Pen SUBQ 2 unit 0800,1200,1700,2100 [facility] Administration Protocol Sodium Chloride 10 ml 05/18/21 01:00 05/21/21 07:53 Sodium Chloride Flush 0.9% 10 Ml Syringe IVP 10 ml 0100,0900,1700 [facility] Administration - Lab Result [place] Diagrams: 05/21/21 05:51 05/21/21 05:51 Subjective - Subjective Patient Reports: Feeling Better, Resting Comfortably, No Complaints Nursing Reports: No Complaints (Patient is resting comfortably in bed. Reports feeling better.) Objective Vital Signs: Vital Signs - 24 hr 05/20/21 05/20/21 05/20/21 12:42 16:37 20:46 Temperature 37.0 C 37.2 C 37.2 C Heart Rate [ 89 90 92 Brachial] Respiratory 16 17 17 Rate Blood Pressure [Left Brachial artery] Blood Pressure 130/57 L 147/72 H 148/67 H [Right Brachial artery] O2 Saturation 99 99 100 05/20/21 05/21/21 05/21/21 23:43 05:39 07:13 Temperature 37.6 C 37.2 C 36.8 C Heart Rate [ 87 82 81 Brachial] Respiratory 20 18 18 Rate Blood Pressure 132/59 H 121/51 L 136/62 H [Left Brachial artery] Blood Pressure [Right Brachial artery] O2 Saturation 97 96 95 Oxygen O2 Source Room air I&O (Last 24 Hrs): Intake and Output Totals x24h 05/19/21 05/20/21 05/21/21 23:59 23:59 23:59 Intake Total 3257.000 3971.667 973.333 Output Total 2650 2375 1250 Balance 054.622 8671.667 -276.667 General: Alert, Oriented x3, Cooperative, No acute distress HEENT: Atraumatic, EOMI Neuro: Alert, Oriented Times 3 Cardiovascular: Regular rate, No murmurs Respiratory: Chest non-tender, No respiratory distress, Breath sounds nml Abdomen: Normal bowel sounds, Soft, No tenderness Extremities: No edema, Normal pulses, No tenderness/swelling Skin: No rashes - Results Results: Laboratory Results WBC 8.4 x10^3/uL (4.8-10.8) 05/21/21 05:51 RBC 3.14 10^6/uL (4.20-5.40) L 05/21/21 05:51 Hgb 9.6 g/dL (12.0-16.0) L 05/21/21 05:51 Hct 28.5 % (37.0-47.0) L 05/21/21 05:51 MCV 90.8 fL (81.0-99.0) 05/21/21 05:51 MCH 30.6 pg (27.0-31.0) 05/21/21 05:51 MCHC 33.7 g/dL (32.0-36.0) 05/21/21 05:51 RDW 12.4 % (12.0-15.0) 05/21/21 05:51 Plt Count 149 10^3/uL (130-450) 05/21/21 05:51 MPV 9.1 fL (7.9-10.8) 05/21/21 05:51 Neut # (Auto) Not Reportable 05/21/21 05:51 Lymph # (Auto) Not Reportable 05/21/21 05:51 [place] # (Auto) Not Reportable 05/21/21 05:51 Eos # (Auto) Not Reportable 05/21/21 05:51 Baso # (Auto) Not Reportable 05/21/21 05:51 Absolute Nucleated RBC Not Reportable 05/21/21 05:51 Total Counted 100 05/21/21 05:51 Band Neuts % (Manual) 2 % (0-10) 05/21/21 05:51 Reactive Lymphs % (Man) 4 % 05/21/21 05:51 Abnorm Lymph % (Manual) 0 % 05/21/21 05:51 Nucleated RBC % Not Reportable 05/21/21 05:51 Neutrophils # (Manual) 5.6 10^3/uL (1.5-6.6) 05/21/21 05:51 Lymphocytes # (Manual) 2.0 10^3/uL (1.5-3.5) 05/21/21 05:51 Monocytes # (Manual) 0.6 10^3/uL (0.0-1.0) 05/21/21 05:51 Eosinophils # (Manual) 0.2 10^3/uL (0-0.7) 05/21/21 05:51 Basophils # (Manual) 0.0 10^3/uL (0-0.1) 05/21/21 05:51 Differential Comment MANUAL DIFFERENTIAL 05/21/21 05:51 WBC Morphology 1+ REACTIVE LYMPHS (NORMAL) 05/21/21 05:51 Platelet Estimate DECREASED (<130,000) (NORMAL) 05/18/21 04:37 RBC Morph Micro Appear 1+ HYPOCHROMASIA (NORMAL) 05/21/21 05:51 Sodium 134 mmol/L (135-145) L 05/21/21 05:51 Potassium 3.4 mmol/L (3.5-5.0) L 05/21/21 05:51 Chloride 104 mmol/L (101-111) 05/21/21 05:51 Carbon Dioxide 23 mmol/L (21-32) 05/21/21 05:51 Anion Gap 7.0 (6-13) 05/21/21 05:51 BUN 10 mg/dL (6-20) 05/21/21 05:51 Creatinine 0.7 mg/dL (0.4-1.0) 05/21/21 05:51 Estimated GFR (MDRD) 83 (>89) L 05/21/21 05:51 Glucose 176 mg/dL (70-100) H 05/21/21 05:51 POC Whole Bld Glucose 173 mg/dL (70 - 100) H 05/21/21 07:10 Estimat Average Glucose 255 mg/dL (70-100) H 05/18/21 04:37 Hemoglobin A1c % 10.5 % (4.27-6.07) H 05/18/21 04:37 Lactic Acid 1.4 mmol/L (0.5-2.2) 05/19/21 09:00 Calcium 7.7 mg/dL (8.5-10.3) L 05/21/21 05:51 Magnesium 1.7 mg/dL (1.7-2.8) 05/17/21 16:39 Total Bilirubin 1.4 mg/dL (0.2-1.0) H 05/17/21 16:39 AST 25 IU/L (10-42) 05/17/21 16:39 ALT 30 IU/L (10-60) 05/17/21 16:39 Alkaline Phosphatase 78 IU/L (42-121) 05/17/21 16:39 C-Reactive Protein 7.4 mg/dL (0-1.0) H 05/21/21 05:51 Total Protein 7.6 g/dL (6.7-8.2) 05/17/21 16:39 Albumin 3.6 g/dL (3.2-5.5) 05/17/21 16:39 Globulin 4.0 g/dL (2.1-4.2) 05/17/21 16:39 Albumin/Globulin Ratio 0.9 (1.0-2.2) L 05/17/21 16:39 Lipase 182 U/L (22-51) H 05/17/21 16:39 Vitamin B12 210 pg/mL (180-914) 05/20/21 04:21 TSH 0.76 uIU/mL (0.34-5.60) 05/17/21 16:39 Urine Color YELLOW 05/17/21 17:00 Urine Clarity HAZY (CLEAR) 05/17/21 17:00 Urine pH 5.5 PH (5.0-7.5) 05/17/21 17:00 Ur Specific [place] 1.015 (1.002-1.030) 05/17/21 17:00 Urine Protein 30 mg/dL (NEGATIVE) H 05/17/21 17:00 Urine Glucose (UA) 500 mg/dL (NEGATIVE) H 05/17/21 17:00 Urine Ketones 15 mg/dL (NEGATIVE) H 05/17/21 17:00 Urine Occult Blood SMALL (NEGATIVE) H 05/17/21 17:00 Urine Nitrite POSITIVE (NEGATIVE) H 05/17/21 17:00 Urine Bilirubin NEGATIVE (NEGATIVE) 05/17/21 17:00 Urine Urobilinogen 0.2 (NORMAL) E.U./dL (NORMAL) 05/17/21 17:00 Ur Leukocyte Esterase NEGATIVE (NEGATIVE) 05/17/21 17:00 Urine RBC 6-10 /HPF (0-5) H 05/17/21 17:00 Urine WBC 11-25 /HPF (0-5) H 05/17/21 17:00 Ur Squamous Epith Cells FEW Squamous (<= Few) 05/17/21 17:00 Urine Bacteria Many /HPF (None Seen) H 05/17/21 17:00 Ur Microscopic Review INDICATED 05/17/21 17:00 Urine Culture Comments INDICATED 05/17/21 17:00 Nasal Adenovirus (PCR) NOT DETECTED 05/17/21 17:40 Nasal B. parapertussis DNA (PCR) NOT DETECTED 05/17/21 17:40 Nasal Coronavir 229E PCR NOT DETECTED 05/17/21 17:40 Nasal Coronavir HKU1 PCR NOT DETECTED 05/17/21 17:40 Nasal Coronavir NL63 PCR NOT DETECTED 05/17/21 17:40 Nasal Coronavir OC43 PCR NOT DETECTED 05/17/21 17:40 Nasal Enterovir/Rhinovir PCR NOT DETECTED 05/17/21 17:40 Nasal Influenza B PCR NOT DETECTED 05/17/21 17:40 Nasal Influenza A PCR NOT DETECTED 05/17/21 17:40 Nasal Parainfluen 1 PCR NOT DETECTED 05/17/21 17:40 Nasal Parainfluen 2 PCR NOT DETECTED 05/17/21 17:40 Nasal Parainfluen 3 PCR NOT DETECTED 05/17/21 17:40 Nasal Parainfluen 4 PCR NOT DETECTED 05/17/21 17:40 Nasal RSV (PCR) NOT DETECTED 05/17/21 17:40 Nasal B.pertussis DNA PCR NOT DETECTED 05/17/21 17:40 Nasal C.pneumoniae (PCR) NOT DETECTED 05/17/21 17:40 Rehtt Human Metapneumo PCR NOT DETECTED 05/17/21 17:40 Nasal M.pneumoniae (PCR) NOT DETECTED 05/17/21 17:40 Nasal SARS-CoV-2 (PCR) NOT DETECTED 05/17/21 17:40 Ethyl Alcohol < 5.0 mg/dL 05/17/21 16:39 Serum Ketones NEGATIVE (NEGATIVE) 05/17/21 16:39 ABX Reporting Has patient been on IV antibiotics over the past 48 hours?: Yes
[2021-05-21] MEDS: ATORVASTATIN 10 MG TABLET PO SCH (20:39)
[2021-05-21] MEDS ORDERED: INSULIN GLARGINE 300 UNIT/3 ML PEN SUBQ SCH (21:00)
[2021-05-22 06:09] LABS: BASOPHILS % (AUTO) 0.2 %; EOSINOPHILS % (AUTO) 1.8 %; HCT - HEMATOCRIT 29.5 % (37.0-47.0); LYMPHOCYTES % (AUTO) 27.9 %; MEAN CORPUSCULAR HEMOGLOBIN 30.8 pg (27.0-31.0); MEAN CORPUSCULAR HGB CONC 33.9 g/dL (32.0-36.0); MEAN CORPUSCULAR VOLUME 90.8 fL (81.0-99.0); MEAN PLATELET VOLUME 8.9 fL (7.9-10.8); MONOCYTES % (AUTO) 7.5 %; NEUTROPHILS % (AUTO) 61.8 %; PLT - PLATELET COUNT 193 10^3/uL (130-450); RED BLOOD COUNT 3.25 10^6/uL (4.20-5.40); RED CELL DISTRIBUTION WIDTH 12.2 % (12.0-15.0); WHITE BLOOD COUNT 8.5 x10^3/uL (4.8-10.8)
[2021-05-22 06:11] LABS: ABNORMAL LYMPHS % (MANUAL) 0 %
[2021-05-22 06:28] LABS: BAND NEUTROPHILS % (MANUAL) 2 %; DIFFERENTIAL COMMENT MANUAL DIFFERENTIAL; LYMPHOCYTES # (MANUAL) 2.7 10^3/uL (1.5-3.5); LYMPHOCYTES % (MANUAL) 28 %; MONOCYTES # (MANUAL) 0.7 10^3/uL (0.0-1.0); NEUTROPHILS # (MANUAL) 5.1 10^3/uL (1.5-6.6); PLATELET ESTIMATE, MANUAL NORMAL (130-450,000) (NORMAL); PLATELET MORPHOLOGY NORMAL APPEARANCE (NORMAL); RBC MORPHOLOGY (MULTIPLE) NORMAL APPEARANCE (NORMAL); REACTIVE LYMPHS % (MANUAL) 4 %; WBC MORPHOLOGY (MULTIPLE) 1+ REACTIVE LYMPHS (NORMAL)
[2021-05-22 06:32] LABS: CALCIUM 7.9 mg/dL (8.5-10.3); CREATININE 0.6 mg/dL (0.4-1.0); CRP - C-REACTIVE PROTEIN 4.9 mg/dL (0-1.0); POTASSIUM 3.2 mmol/L (3.5-5.0)
[2021-05-22] MEDS: SODIUM CHLORIDE FLUSH 0.9% 10 ML SYRINGE IVP SCH ×2 (06:52→07:30)
[2021-05-22] MEDS: INSULIN ASPART 300 UNIT/3 ML PEN SUBQ SCH ×2 (07:29→11:25)
[2021-05-22] MEDS ORDERED: POTASSIUM CHLORIDE 20 MEQ TABLET PO ONE (08:09)
--- NOTE | 2021-05-22 08:22 | Discharge Plan ---
Discharge Plan Problem Reviewed?: Yes Diet: Diabetic Activity Restrictions: Activity as Tolerated Shower Restrictions: No Driving Restrictions: No Weight Bearing: Full Weight Follow-Up Care: Home Health - RN, [facility] - Diabetes Ed No Smoking: If you smoke, Please STOP! Call for help. Disposition: Home, Self Care Condition: Stable Prescriptions: L. Acidophilus/Pectin, [place] [Acidophilus-Pectin Captab] 1 each PO DAILY #9 tablet Glipizide [Glipizide Xl] 10 mg PO DAILY #30 tab Blood-Glucose Meter [Glucometer] 1 each MC DAILY #1 each Blood Sugar Diagnostic [Glucometer Strips] 1 each MC DAILY #30 strip metFORMIN [Glucophage] 1,000 mg PO BIDWM #120 tab Lancets 1 each MC DAILY #30 each levoFLOXacin [Levofloxacin] 750 mg PO DAILY #9 tablet Instruction Topics: Diabetes Type 2 Oral Meds, Diabetes Healthy Meals, Urinary Tract Infecs Women, Catheter Indwelling Urinary Dc, Diabetes Type 2 Health Concerns: You were hospitalized to manage a kidney infection which had spread into your blood. You were given IV antibiotics for 5 days and should continue with oral antibiotics plus a probiotic pill once a day, until May 31, 2021. During your hospitalization you were unable to fully empty your urinary bladder, this is most likely due a poor control of your diabetes. You were seen by v block saw operator doctor who recommended that if you were still unable to fully empty your bladder after the infection improves, to reinsert the st catheter, which needed to be done. Today you are going home with a st catheter and a leg bag, to help drain the urine. You will need to follow up with your primary care provider and get referral to a Urologist for further management. When you were admitted to the hospital your blood sugar was in the 400s and your A1c was 10.5. This was probably abnormal due to your poor diet, that was high in sugars, and from not taking your oral diabetic medications as prescribed. While in the hospital you needed to be on Insulin and then we restarted your Glipizide. Your blood sugars then improved. You should resume the Glipizide and Metformin upon discharge from the hospital. You will need to check your blood sugars by fingerstick, at least once a day in the morning, to discuss with your primary care provider. Follow a diabetic diet and I recommend that you follow up with the primary special educator in the [facility] clinic at [facility] in [place]. Your new primary care provider will need to give you a referral for this. Please resume your pre-hospital medications EXCEPT NOT THE MYRBETRIQ, and continue the antibiotic until May 31, 2021. Also, new prescriptions and refill prescriptions and prescription for a blood test machine, lancets and blood glucose strips have been prescribed. All new prescriptions were electronically sent to your [facility] pharmacy in [place]. If you have new or worsening symptoms, call your new PCP for advice, or come to the ED. Plan of Treatment: As above Care Goals: Improvement in symptoms and stabilization are the goals. Assessment: The patient and daughter (Belle) understand and are agreeable with the plan. Additional Instructions or Follow Up instructions: Follow up with a primary care provider in 1- 2 weeks. A list was given to you of available providers. If you are unable to find a provider, your follow up appointment can be at an Urgent Care. Follow up on diabetes education at the [facility] clinic.
[2021-05-22] MEDS ORDERED: levoFLOXacin 250 MG TABLET PO SCH (09:00)
--- NOTE | 2021-05-22 12:59 | DISCHARGE SUMMARY ---
Discharge Summary Admit Date: 05/17/21 Discharge Date: 05/22/21 Discharging Provider: Dr. Guillen Code Status: Attempt Resuscitation Condition at Discharge: Stable Discharge Disposition: 01 Home, Self Care - DIAGNOSES Admission Diagnoses: (1) UTI (urinary tract infection) (2) Tachycardia (3) Hyponatremia (4) Altered mental status (5) Diabetes mellitus (6) Hypertension (7) Hyperlipidemia - HPI History of Present Illness: Per Dr. Taylor admitting note: Patient is a 70-year-old female who presented to the ED with complaint of chills, headache, urinary frequency and urinary incontinence. Symptoms started 2 days ago. She has been mostly sleeping/lethargic for the past 2 days. Today her blood glucose was 414 at home as a result her daughter decided to bring her to the emergency room for evaluation. In the ED she was noted to be tachycardic with heart rate as high as the 140s. She received a dose of diltiazem 15 mg IV x1 which resulted in improved heart rate down to 109 Work-up included a urine analysis which was indicative of a UTI. Urine nitrite was positive, urine WBC 11-25 with many bacteria. CBC showed white blood cell count of 13. She also had a sodium level of 125 with blood glucose of 428. Her Metformin dose had been increased to 1000 twice daily however she only takes 500 mg twice daily due to stomach upset. She was started on Myrbetriq about 2 months ago. Denied chest pain, dyspnea, abdominal pain, nausea, vomiting. As a result she was presented for admission for further management. She is currently visiting her daughter from [place]. She has been on [facility] for the past month. Her medical history is significant for diabetes mellitus, overactive bladder, hypertension and hyperlipidemia. - CONSULTS | PROCEDURES Consultations: Dr. Allen with [facility] - H[facility]PITAL COURSE Hospital Course: (1) E coli bacteremia Patient was admitted with lethargy and UTI. Blood cultures quickly grew E. coli in 2 out of 2 bottles. Her initial lactic acid level was 2.2 and WBCs were 13.6. She was started on Rocephin IV in ED and continued for 4 days. She was transitioned to PO Levofloxacin 750mg daily based on sensitivity that will continue until 05/31/2021 for a full 14 day course of antibiotics. WBCs normalized to 8.5 and lactic acid to 1.5 on day of discharge and she was afebrile for 3 days prior to discharge. (2) Pyelonephritis due to E Coli Upon admission patient was found to have E. Coli in her urine and blood. A CT of abdomen and pelvis showed "bilateral kidney stranding" which is consistent with pyelonephritis. E coli had the same sensitivity in her blood culture and urine culture. WBCs normalized to 8.5 on the day of discharge. She was transitioned to PO Levofloxacin 750mg daily that will continue until 05/31/2021. DREDGING INSPECTOR consult recommended Estrace insert 1g per vagina twice weekly OR Vagifem 10mg estradiol tablet inserted vaginally 2 times weekly, to decrease UTIs. (3) Urinary retention Patient was admitted with UTI and bactermia. CT of the Abdomen/ pelvis showed "Distension of the urinary bladder". Her last UTI was in Jan 2021 and she was started on Myrbetriq for bladder spasm. During hospitalization she complained of lower abdominal pain and found to have 1035 mls of retained urine. A Jacob ca theter was inserted. Consult by DREDGING INSPECTOR provider Dr. Allen recommended "discontinuing Mirebegron due to suspected neurogenic bladder causing overflow incontinence. Presumed cause of neurogenic bladder is poor glycemic control. Dr. Allen also recommended " Vaginal estrogen cream (Estrace) insert 1g per vaginal 2 times weekly or Vagifem 10mg estradiol tablets inserted vaginally twice weekly to aid in incontinence". The patient was discharged with a Jacob catheter and leg bag. She was given instructions on appropriate care. She needs to establish with a PCP and get referral to urology for further management. (4) Diabetes mellitus She is a poorly controlled Type 2 diabetic with an admission A1c of 10.5 and initial glucose was 400s. She was supposed to be on Metformin 1000mg PO twice daily however, she was only taking 500mg PO twice daily due to upsetting her stomach with higher doses. She also takes Glipizide 10 mg PO daily. She admitted to not following a diabetic diet and ate sugar ad axel. Nutrition consult with patient and daughter was completed and patient expressed that she would like to resume her oral medications and try a radical diet change to prevent injectable insulins. She was restarted on her Metformin 1000mg PO twice daily and Glipizide 10mg PO daily on discharge home. Her serum glucose was 122. A referral to [facility] clinic for diabetic education with patient and daughter is recommended. (5) Hypertension Patient has a history of Hypertension and takes Losartan 50mg PO daily. She presented to ER with BP 200 systolic. Today her systolic blood pressure is 120- 140s. Losartan 50mg PO daily was restarted when blood pressure elevated on discharge. (6) Hyperlipidemia Patient has a history of hyperlipidemia and take Simvastatin 20mg nightly at home and was resumed during hospitalization. (7) Hypokalemia Potassium was slowly trending down since admission from 4.4 to 3.2 She received 40mEq of Potassium Chloride today. (8) Hyponatremia Admission Na was 125 and glucose was 428. She received 1L of normal saline in the ED and then started on normal saline as 100ml/hr. Her Na was 137 on the day of discharge. Suspect pseudohyponatremia vs hypovolemic hyponatremia. - ALLERGIES Allergies/Adverse Reactions: Allergies Allergy/AdvReac Type Severity Reaction Status Date / Time quinine Allergy Intermediate Unknown Verified 05/18/21 11:35 - MEDICATIONS Home Medications: Ambulatory Orders Medication Instructions Recorded Confirmed Ascorbic Acid [Vitamin C] 500 mg PO DAILY 05/18/21 05/18/21 Losartan [Cozaar] 50 mg PO DAILY 05/18/21 05/18/21 Magnesium Oxide [Mag Ox] 250 mg PO DAILY 05/18/21 05/18/21 Simvastatin [Zocor] 20 mg PO QPM 05/18/21 05/18/21 Blood Sugar Diagnostic [Glucometer 1 each MC DAILY #30 strip 05/22/21 Strips] Blood-Glucose Meter [Glucometer] 1 each MC DAILY #1 each 05/22/21 Glipizide [Glipizide Xl] 10 mg PO DAILY #30 tab 05/22/21 L. Acidophilus/Pectin, [place] 1 each PO DAILY #9 tablet 05/22/21 [Acidophilus-Pectin Captab] Lancets 1 each MC DAILY #30 each 05/22/21 levoFLOXacin [Levofloxacin] 750 mg PO DAILY #9 tablet 05/22/21 metFORMIN [Glucophage] 1,000 mg PO BIDWM #120 tab 05/22/21 - PHYSICAL EXAM AT DISCHARGE General Appearance: positive: No acute distress, Alert Eyes Bilateral: positive: Normal inspection, EOMI Respiratory: positive: Chest non-tender, No respiratory distress, Breath sounds nml Cardiovascular: positive: Regular rate & rhythm, No murmur Peripheral Pulses: positive: 2+ Abdomen: positive: Non-tender, No organomegaly, Nml bowel sounds, No distention Extremities: positive: Non-tender, Full ROM, Nml appearance, No pedal edema Neurologic/Psychiatric: positive: Oriented x3, Mood/affect nml - LABS Result Diagrams: 05/22/21 05:50 05/22/21 05:50 - DIAGNOSTIC IMAGING Diagnostic Imaging Results: Final report reviewed - FOLLOW UP Follow Up: Follow up with primary care provider in 1-4 weeks. If you are unable to get an appointment you can be seen at the Urgent Care. - TIME SPENT Time Spent in Discharge (Minutes): 45
[2021-05-22 16:01] VITALS: BP 177/73
== END 2021-05-22 17:15 | disposition home or self-care (01) | DRG 690 ==
LOC: ED 16:26 → MS2 18:39
PROVIDERS: ADMIT Internal Medicine; ATTEND Internal Medicine
DX: N30.00 Acute cystitis without hematuria (principal); N12 Tubulo-interstitial nephritis, not specified as acute or chronic; E11.9 Type 2 diabetes mellitus without complications; E87.1 Hypo-osmolality and hyponatremia; R78.81 Bacteremia; Z20.822 Contact with and (suspected) exposure to COVID-19; B96.20 Unspecified Escherichia coli [E. coli] as the cause of diseases classified elsewhere; E11.40 Type 2 diabetes mellitus with diabetic neuropathy, unspecified; E11.65 Type 2 diabetes mellitus with hyperglycemia; E78.5 Hyperlipidemia, unspecified; E87.6 Hypokalemia; I10 Essential (primary) hypertension; N31.9 Neuromuscular dysfunction of bladder, unspecified; N39.41 Urge incontinence; T38.3X6A Underdosing of insulin and oral hypoglycemic [antidiabetic] drugs, initial encounter; R00.0 Tachycardia, unspecified; R33.9 Retention of urine, unspecified; R35.0 Frequency of micturition; R41.82 Altered mental status, unspecified; Z79.84 Long term (current) use of oral hypoglycemic drugs; Z79.899 Other long term (current) drug therapy; Z80.0 Family history of malignant neoplasm of digestive organs; Z82.3 Family history of stroke; Z82.49 Family history of ischemic heart disease and other diseases of the circulatory system; Z83.3 Family history of diabetes mellitus; Z84.2 Family history of other diseases of the genitourinary system; Z85.43 Personal history of malignant neoplasm of ovary; Z88.8 Allergy status to other drugs, medicaments and biological substances; Z90.710 Acquired absence of both cervix and uterus; Z90.722 Acquired absence of ovaries, bilateral; Z90.79 Acquired absence of other genital organ(s); Z91.11 Patient's noncompliance with dietary regimen; Z91.128 Patient's intentional underdosing of medication regimen for other reason; Z91.19 Patient's noncompliance with other medical treatment and regimen
CPT/HCPCS: 36415; 70450; 71045; 74176; 80048; 80053; 81001; 82009; 82607; 83036; 83605; 83690; 83735; 84443; 85025; 86140; 87040; 87086; 87150; 87181; 87631; 93005; 96361; 96374; 97116; 97161; 99284; 99285; A9270; G0480; J1815; 0202U; 80320; 81003

== ENCOUNTER 2021-06-06 05:41 | Emergency (ER) | payer MEDICARE ==
[2021-06-06 06:03] VITALS: BP 154/110
--- NOTE | 2021-06-06 06:26 | ED Physician Documentation ---
PD HPI FEMALE - Stated complaint Stated Complaint: PROBLEMS PEEING - Chief complaint Chief Complaint: Abd Pain - Additional information Additional information: Patient was admitted in mid April for issues related to hyponatremia, urinary tract infection and urinary retention and had a Jacob catheter placed at that time.She has been doing well at home and the Jacob catheter has been functioning well. She last had the bag emptied yesterday evening around 10 PM. This morning there was not much urine in the bag but she felt suprapubic pressure and had leakage around the catheter.Her urine has been clear without odor and no hematuria. She denies fever, chest pain, difficulty breathing, vomiting, diarrhea.She is unsure when she is supposed to see the urologist. Review of Systems Constitutional: denies: Fever Nose: denies: Congestion Cardiac: denies: Chest pain / pressure Respiratory: denies: Dyspnea GI: denies: Nausea, Vomiting : reports: Unable to Void. denies: Dysuria, Hematuria Skin: denies: Rash Musculoskeletal: denies: Back pain Neurologic: denies: Syncope PD PAST MEDICAL HISTORY - Past Medical History Cardiovascular: Hypertension Respiratory: None Neuro: None Endocrine/Autoimmune: Type 2 diabetes : Incontinence, Frequency Psych: None Musculoskeletal: None - Past Surgical History /[employer]: Hysterectomy - Present Medications Home Medications: Ambulatory Orders Medication Instructions Recorded Confirmed Ascorbic Acid [Vitamin C] 500 mg PO DAILY 05/18/21 05/18/21 Losartan [Cozaar] 50 mg PO DAILY 05/18/21 05/18/21 Magnesium Oxide [Mag Ox] 250 mg PO DAILY 05/18/21 05/18/21 Simvastatin [Zocor] 20 mg PO QPM 05/18/21 05/18/21 Blood Sugar Diagnostic [Glucometer 1 each MC DAILY #30 strip 05/22/21 Strips] Blood-Glucose Meter [Glucometer] 1 each MC DAILY #1 each 05/22/21 Glipizide [Glipizide Xl] 10 mg PO DAILY #30 tab 05/22/21 L. Acidophilus/Pectin, [place] 1 each PO DAILY #9 tablet 05/22/21 [Acidophilus-Pectin Captab] Lancets 1 each MC DAILY #30 each 05/22/21 levoFLOXacin [Levofloxacin] 750 mg PO DAILY #9 tablet 05/22/21 metFORMIN [Glucophage] 1,000 mg PO BIDWM #120 tab 05/22/21 - Allergies Allergies/Adverse Reactions: Allergies Allergy/AdvReac Type Severity Reaction Status Date / Time quinine Allergy Intermediate Unknown Verified 06/06/21 06:03 - Social History Smoking Status: Never smoker - POLST Patient has POLST: No POLST Status: Full Code PD ED PE NORMAL - General General: Alert and oriented X 3, No acute distress, Well developed/nourished - HEENT HEENT: Atraumatic, Moist mucous membranes - Neck Neck: Supple, no meningeal sign - Cardiac Cardiac: RRR, No gallop, Strong equal pulses - Respiratory Respiratory: No respiratory distress, Clear bilaterally - Abdomen Abdomen: Normal bowel sounds, Soft, Other (Mild suprapubic tenderness) - Back Back: No CVA TTP - Derm Derm: Normal color, Warm and dry - Extremities Extremities: No deformity - Neuro Neuro: No motor deficit, Normal speech - Psych Psych: Normal mood, Normal affect Results - Vitals Vitals: Vital Signs - 24 hr 06/06/21 05:50 Temperature 37.1 C Heart Rate 102 H Respiratory 16 Rate Blood Pressure 154/110 H O2 Saturation 98 Oxygen O2 Source Room air PD MEDICAL DECISION MAKING - ED course ED course: Patient presenting for evaluation related to her Jacob catheter. She has not yet seen an outpatient urologist and per her daughter is scheduled to see a specialist in June. Her Jacob catheter was changed and she had over a 1 L of clear urine output into her new Jacob bag. Patient has no symptoms to suggest urinary tract infection.She does not appear septic. Do not think she needs emergent labs at this time. Departure - Departure Disposition: 01 Home, Self Care Clinical Impression: Urinary retention Jacob catheter problem Qualifiers: Encounter type: initial encounter Qualified Code(s): T83.9XXA - Unspecified complication of genitourinary prosthetic device, implant and graft, initial encounter Condition: Stable Instructions: ED Catheter Care Jacob Comments: Your Jacob catheter was changed and now appears to be draining well. Please follow-up with your primary care doctor and urologist regarding when this catheter should be removed.Please return to the emergency department with any concerns such as another issue with your catheter, change to the color of your urine, development of pain or with any concerns. Discharge Date/Time: 06/06/21 07:33
== END 2021-06-06 07:33 | disposition home or self-care (01) ==
LOC: ED 05:41
DX: R33.9 Retention of urine, unspecified (principal); T83.9XXA Unspecified complication of genitourinary prosthetic device, implant and graft, initial encounter; E11.9 Type 2 diabetes mellitus without complications; Z96.41 Presence of insulin pump (external) (internal); Z79.4 Long term (current) use of insulin; I10 Essential (primary) hypertension
CPT/HCPCS: 51702; 99282; 99283

== ENCOUNTER 2021-06-13 13:39 | Outpatient (CLI) | payer MEDICARE | END 2021-06-13 13:40 | disposition home or self-care (01) | LOC: NS 13:39 | PROVIDERS: ATTEND Physician Assistant | DX: Z71.3 Dietary counseling and surveillance (principal); E11.65 Type 2 diabetes mellitus with hyperglycemia; E11.8 Type 2 diabetes mellitus with unspecified complications; Z79.84 Long term (current) use of oral hypoglycemic drugs | CPT/HCPCS: 97802 ==

== ENCOUNTER 2021-07-22 14:57 | Outpatient (CLI) | payer MEDICARE ==
[2021-07-22 19:14] LABS: CALCIUM 9.6 mg/dL (8.5-10.3); CREATININE 0.8 mg/dL (0.4-1.0); POTASSIUM 4.5 mmol/L (3.5-5.0)
[2021-07-22 20:49] LABS: ESTIMATED AVERAGE GLUCOSE 180 mg/dL (70-100); HEMOGLOBIN A1c% 7.9 % (4.27-6.07)
== END 2021-07-22 14:58 | disposition home or self-care (01) ==
LOC: LAB.N 14:57
PROVIDERS: ATTEND Internal Medicine
DX: E11.9 Type 2 diabetes mellitus without complications (principal); Z79.899 Other long term (current) drug therapy
CPT/HCPCS: 36415; 80048; 83036

== ENCOUNTER 2021-07-28 10:47 | Outpatient (CLI) | payer MEDICARE ==
--- NOTE | 2021-08-05 09:47 | Mammography Report ---
BILATERAL DIGITAL SCREENING MAMMOGRAM 3D/2D: 07/28/2021 CLINICAL: Routine screening. No prior exams were available for comparison. There are scattered fibroglandular elements in both br easts. There are benign vascular calcifications in both breasts. No significant masses, calcifications, or other findings are seen in either breast. IMPRESSION: BENIGN There is no mammographic evidence of malignancy. A 1 year screening mammogram is recommended. This exam was interpreted at Station ID: [id number]. NOTE: For mammograms, a report in lay terms will be sent to the patient. Approximately 15% of breast malignancies will not be visualized mammographically. In the management of a palpable breast mass, a negative mammogram must not discourage biopsy of a clinically suspicious lesion. Electronically Signed By: Sheldon Stanley M.D. [facility] [place]:08/05/2021 08:46:21 ACR BI-RADS Category 2: Benign Finding(s) 3342F PARENCHYMAL PATTERN: (A) - The breast(s) demonstrate(s) scattered fibroglandular densities. BI-RADS CATEGORY: (2) - 2 RECOMMENDATION: (ANNUAL) - Recommend routine annual screening mammography. [id number] 1 year screening LATERALITY: (B)
== END 2021-07-28 10:48 | disposition home or self-care (01) ==
LOC: DI.N 10:47
PROVIDERS: ATTEND Internal Medicine
DX: Z12.31 Encounter for screening mammogram for malignant neoplasm of breast (principal)

== ENCOUNTER 2021-08-03 08:10 | Outpatient (CLI) | payer MEDICARE ==
--- NOTE | 2021-08-03 08:55 | DEXA Report ---
PROCEDURE: Dexa Spine and/or Hip INDICATIONS: POST MENOPAUSAL TECHNIQUE: Dual energy x-ray absorptiometry (DXA) was performed on a [employer] System. Regions measur ed are the AP Spine, femoral neck, and if needed forearm. COMPARISON: None. FINDINGS: Lumbar Spine: Bone Mineral Density 1.127 g/cm/cm,T score -0.4, normal Left Hip: Bone Mineral Density 0.662 g/cm/cm,T score -2.7, osteoporosis Left Femoral Neck: Bone Mineral Density 0.612 g/cm/cm, T score -3.1, osteoporosis (T score greater or equal to -1.0: NORMAL) (T score from -1.1 to -2.4: OSTEOPENIA) (T score less than or equal to -2.5 to: OSTEOPOROSIS) Impression: Bone mineral density as detailed above. Patients with diagnosis of osteoporosis or osteopenia should have regular bone mineral density assess ment. For those eligible for Medicare, routine testing is allowed once every 2 years. Testing frequ ency can be increased for patients who have rapidly progressing disease or for those who are receivin g medical therapy to restore bone mass. Reviewed by: Carlos Enrique Rivera MD on 08/03/2021 8:53 AM PDT Approved by: Carlos Enrique Rivera MD on 08/03/2021 8:53 AM PDT Station ID: [id number]
== END 2021-08-03 08:11 | disposition home or self-care (01) ==
LOC: DI 08:10
PROVIDERS: ATTEND Internal Medicine
DX: Z78.0 Asymptomatic menopausal state (principal); M81.0 Age-related osteoporosis without current pathological fracture